=== PATIENT | male | born 1940 | race Caucasian/White ===

== ENCOUNTER 2017-10-30 11:37 | Inpatient (IN) | payer MEDICARE, BC ==
[2017-10-30] MEDS: Sodium Chloride 0.9% 1,000 ML IV SCH ×2 (12:18→20:23)
[2017-10-30] MEDS: Sodium Chloride 0.9% 10 ML Syringe FLUSH PRN (12:18)
--- NOTE | 2017-10-30 13:01 | PCM.HP ---
H&P History of Present Illness - General Date of Service: 10/30/17 Admit Problem/Dx: Admission Diagnosis/Problem Admission Diagnosis/Problem Renal failure Source of Information: Patient, Family, Old Records History Limitations: Reports: No Limitations - History of Present Illness Onset of Symptoms: Reports: Gradual Duration of Symptoms: Reports: Day(s):, Getting Worse (increasing pain last couple days, to acute pain today) Location: Reports: Abdomen Quality: Reports: Same as Previous Episode Severity: Moderate Improves with: Reports: None Worsens with: Reports: None Context: Reports: Other (h/o small intestine carcinoid, 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) Associated Symptoms: Reports: Loss of Appetite, Weakness Abdominal Pain Score (Numeric/FACES): 7 - Related Data Allergies/Adverse Reactions: Allergies Allergy/AdvReac Type Severity Reaction Status Date / Time NSAIDS (Non-Steroidal Allergy UNKNOWN Verified 10/30/17 12:38 Anti-Inflamma Home Medications: Home Meds Levothyroxine 150 mcg PO QAM 09/17/13 [History] Shark Cartilage 1,000 mg PO QAM 09/17/13 [History] Tolterodine Tartrate [Detrol LA] 4 mg PO QAM 09/17/13 [History] amLODIPine [Norvasc] 10 mg PO BID 09/17/13 [History] Aspirin 81 mg PO DAILY 09/14/16 [History] Metoprolol Tartrate 25 mg PO BID 12/14/16 [History] Febuxostat [Uloric] 40 mg PO DAILY 10/30/17 [History] Losartan [Cozaar] 25 mg PO DAILY 10/30/17 [History] Mv-Mn/FA/Vit K/Lycop/Lut/Zeaxa [Ocuvite Eye + Multi Tablet] 1 each PO DAILY [History] Octreotide [SandoSTATIN LAR] 20 mg IM Q30D 10/30/17 [History] Pravastatin Sodium 20 mg PO DAILY 10/30/17 [History] Tamsulosin HCl [Flomax] 0.4 mg PO DAILY 10/30/17 [History] Ticagrelor [Brilinta] 60 mg PO DAILY 10/30/17 [History] Vit C/Thompson & Celery Ex/Grp E [Tart Thompson] 1 each PO DAILY 10/30/17 [History] Past Medical History HEENT History: Reports: Other (See Below) Other HEENT History: Wears glasses Cardiovascular History: Reports: Bypass, CAD, High Cholesterol, Hypertension, Stents Other Cardiovascular History: most recent cardiac stent July 2017 Other Gastrointestinal History: 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, h/o SBO Genitourinary History: Reports: BPH, Prostate Disorder Other Genitourinary History: Prostate Adenocarcinoma with radiation seeds Musculoskeletal History: Reports: Gout, Osteoarthritis Endocrine/Metabolic History: Reports: Hypothyroidism, Obesity/BMI 30+ Oncologic (Cancer) History: Reports: Prostate, Other (See Below) Other Oncologic History: metastatic carcinoid tumor, small bowel - Past Surgical History Cardiovascular Surgical History: Reports: Coronary Artery Bypass, Coronary Artery Stent GI Surgical History: Reports: Colon (s/p partial small bowel resection for carcinoid) Male Surgical History: Reports: Other (See Below) (prostate radiation seeds) Social & Family History - Tobacco Use Smoking Status *Q: Former Smoker Years of Tobacco use: 15 Used Tobacco, but Quit: Yes Month/Year Tobacco Last Used: 1984 - Caffeine Use Caffeine Use: Reports: Coffee Caffeine Use Comment: 5 cups a day - Recreational Drug Use Recreational Drug Use: No H&P Review of Systems - Review of Systems: Review Of Systems: See Below General: Reports: Malaise, Weakness, Fatigue, Decreased Appetite HEENT: Reports: No Symptoms Pulmonary: Reports: Shortness of Breath (however improved since Management Associate Dr. Oliveira decreased dose of Brilinta) Cardiovascular: Reports: Dyspnea on Exertion (again, improved after Brilinta dose decreased) Gastrointestinal: Reports: Abdominal Pain, Decreased Appetite Genitourinary: Reports: No Symptoms Musculoskeletal: Reports: No Symptoms Skin: Reports: No Symptoms Psychiatric: Reports: No Symptoms Neurological: Reports: No Symptoms Hematologic/Lymphatic: Reports: Easy Bruising (secondary to Brilinta) Immunologic: Reports: No Symptoms Exam - Exam Exam: See Below - Vital Signs Vital Signs: Last Vital Signs Temp 98.1 F 10/30/17 12:00 Pulse 88 10/30/17 12:00 Resp 18 10/30/17 12:00 BP 135/72 10/30/17 12:00 Pulse Ox 96 10/30/17 12:00 Weight: 219 lb 9.6 oz - Exam General: Alert, Oriented, Moderate Distress HEENT: EOMI, Hearing Intact, Mucosa Moist & [place], Pupils Reactive, Glasses Neck: Supple, Trachea Midline Lungs: Clear to Auscultation, Normal Respiratory Effort Cardiovascular: Regular Rate, Regular Rhythm GI/Abdominal Exam: Normal Bowel Sounds, No Organomegaly, No Mass, Distended ( very slight distention), Tender (mild tenderness reproduced with palpation) (Male) Exam: Deferred Rectal (Males) Exam: Deferred Extremities: Normal Inspection, No Pedal Edema Skin: Warm, Dry, Intact Neuro Extensive - Mental Status: Alert, Oriented x3, Normal Mood/Affect, Normal Cognition, Memory Intact Psychiatric: Alert, Normal Affect, Normal Mood - Problem List (1) Abdominal pain SNOMED Code(s): 90762196 ICD Code: R10.9 - UNSPECIFIED ABDOMINAL PAIN Status: Acute Priority: High Current Visit: Yes Qualifiers: Abdominal location: lower abdomen, unspecified Qualified Code(s): R10.30 - Lower abdominal pain, unspecified (2) Renal failure (ARF), acute on chronic SNOMED Code(s): 117361012 ICD Code: N17.9 - ACUTE KIDNEY FAILURE, UNSPECIFIED; N18.9 - CHRONIC KIDNEY DISEASE, UNSPECIFIED Status: Acute Priority: High Current Visit: Yes Qualifiers: Qualified Code(s): N17.9 - Acute kidney failure, unspecified; N18.9 - Chronic kidney disease, unspecified (3) HTN (hypertension) SNOMED Code(s): 39412372 ICD Code: I10 - ESSENTIAL (PRIMARY) HYPERTENSION Status: Chronic Priority : Medium Current Visit: Yes Qualifiers: Hypertension type: essential hypertension Qualified Code(s): I10 - Essential (primary) hypertension (4) Hyperlipemia SNOMED Code(s): 89379981 ICD Code: E78.5 - HYPERLIPIDEMIA, UNSPECIFIED Status: Chronic Priority: Low Current Visit: Yes Qualifiers: Hyperlipidemia type: unspecified Qualified Code(s): E78.5 - Hyperlipidemia , unspecified (5) Coronary artery disease SNOMED Code(s): 27459887 ICD Code: I25.10 - ATHSCL HEART DISEASE OF [place] CORONARY ARTERY W/O ANG PCTRS Status: Chronic Priority: Medium Current Visit: Yes Qualifiers: Coronary Disease-Associated Artery/Lesion type: bypass graft [place] vs. transplanted heart: [place] heart Associated angina: without angina Qualified Code(s): I25.810 - Atherosclerosis of coronary artery bypass graft(s) without angina pectoris (6) Hypothyroidism SNOMED Code(s): 13821527 ICD Code: E03.9 - HYPOTHYROIDISM, UNSPECIFIED Status: Chronic Priority: Low Current Visit: Yes Qualifiers: Hypothyroidism type: unspecified Qualified Code(s): E03.9 - Hypothyroidism , unspecified (7) 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 SNOMED Code(s): 534507879, 499274791 ICD Code: D3A.019 - BENIGN CARCINOID TUMOR OF THE SMALL INTESTINE, UNSP PORTION Status: Chronic Priority: High Current Visit: Yes Problem Details: s/p partial small bowel resection Problem List Initiated/Reviewed/Updated: Yes Orders Last 24hrs: Active Orders 24 hr Category Date Time Status Patient Status [ADT] Routine ADT 10/30/17 11:48 Active Bedrest Bathroom Privileges [RC] ASDIRECTED Care 10/30/17 11:48 Active Height and Weight [RC] DAILY Care 10/30/17 11:48 Active Intake and Output [RC] QSHIFT Care 10/30/17 11:50 Active Oxygen Therapy [RC] PRN Care 10/30/17 11:48 Active Peripheral IV Care [RC] . DIRECTED Care 10/30/17 11:51 Active Up With Assistance [RC] ASDIRECTED Care 10/30/17 11:48 Active VTE/DVT Education [RC] PER UNIT ROUTINE Care 10/30/17 11:48 Active Vital Signs [RC] Q4H Care 10/30/17 11:48 Active Nothing per Oral Now Diet [DIET] Diet 10/30/17 Lunch Active Abdomen 2V AP Flat Upright [CR] Routine Exams 10/30/17 10:42 Taken CTA Abd Pelv w wo Cont [CT] Urgent Exams 10/30/17 12:47 Ordered C-REACTIVE PROTEIN [CHEM] AM Lab 10/31/17 05:11 Ordered C-REACTIVE PROTEIN [CHEM] AM Lab 11/01/17 05:11 Ordered C-REACTIVE PROTEIN [CHEM] AM Lab 11/02/17 05:11 Ordered C-REACTIVE PROTEIN [CHEM] AM Lab 11/03/17 05:11 Ordered CBC WITH AUTO DIFF [HEME] AM Lab 10/31/17 05:11 Ordered CBC WITH AUTO DIFF [HEME] AM Lab 11/01/17 05:11 Ordered CBC WITH AUTO DIFF [HEME] AM Lab 11/02/17 05:11 Ordered CBC WITH AUTO DIFF [HEME] AM Lab 11/03/17 05:11 Ordered COMPREHENSIVE METABOLIC PN,CMP [CHEM] AM Lab 10/31/17 05:11 Ordered COMPREHENSIVE METABOLIC PN,CMP [CHEM] AM Lab 11/01/17 05:11 Ordered COMPREHENSIVE METABOLIC PN,CMP [CHEM] AM Lab 11/02/17 05:11 Ordered COMPREHENSIVE METABOLIC PN,CMP [CHEM] AM Lab 11/03/17 05:11 Ordered Aspirin Med 10/31/17 08:00 Ordered 81 mg PO DAILY Levothyroxine Med 10/31/17 08:00 Ordered 150 mcg PO QAM Losartan [Cozaar] Med 10/31/17 08:00 Ordered 25 mg PO DAILY Metoprolol Tartrate [Lopressor] Med 10/30/17 18:00 Ordered 25 mg PO BID Sodium Chloride 0.9% [Normal Saline] 1,000 ml Med 10/30/17 12:00 Active IV ASDIRECTED Sodium Chloride 0.9% [Saline Flush] Med 10/30/17 11:48 Active 10 ml FLUSH ASDIRECTED PRN Tamsulosin [Flomax] Med 10/31/17 08:00 Ordered 0.4 mg PO DAILY Ticagrelor [Brilinta] Med 10/31/17 08:00 Ordered 60 mg PO DAILY amLODIPine [Norvasc] Med 10/30/17 18:00 Ordered 10 mg PO BID Antiembolic Hose [OM.PC] Per Unit Routine Oth 10/30/17 11:50 Ordered Peripheral IV Insertion Adult [OM.PC] Routine Oth 10/30/17 11:48 Ordered Resuscitation Status Routine Resus Stat 10/30/17 11:48 Ordered Medication Orders Amlodipine Besylate (Norvasc) 10 mg PO BID [facility] Aspirin (Aspirin) 81 mg PO DAILY [facility] Sodium Chloride (Normal Saline) 1,000 mls @ 125 mls/hr IV ASDIRECTED [facility]AKIA Last Admin: 10/30/17 12:18 Dose: 125 mls/hr Levothyroxine Sodium (Levothyroxine) 150 mcg PO QAM [facility] Metoprolol Tartrate (Lopressor) 25 mg PO BID [facility] Non-Formulary Medication (Losartan [Cozaar]) 25 mg PO DAILY [facility] Non-Formulary Medication (Ticagrelor [Brilinta]) 60 mg PO DAILY [facility] Sodium Chloride (Saline Flush) 10 ml FLUSH ASDIRECTED PRN PRN Reason: Keep Vein Open Last Admin: 10/30/17 12:18 Dose: 10 ml Tamsulosin HCl (Flomax) 0.4 mg PO DAILY [facility] Assessment/Plan Comment:: 10-30-17 Randal Mulligan PA-C Admitting to IP status this 77 yr-old male with acute renal failure, acute abdominal pain. Concern for metastatic carcinoid tumor as causative agent of acute pain. H/O small bowel carcinoid tumor with mets, s/p partial small bowel resection. Needing CT scan of the abdomen and pelvis, did discuss with patient and the need for this vs. the risk of using dye. They understand the implications of risk to renal function. Starting IV NS at 125 ml/h. Patient is npo, and CT scan is ordered. Holding Detrol, Pravastatin, Uloric, fish oil and shark cartilage. Dr. Cook consulted at the time of admit. Did discuss transfer to [place] vs. admit at [facility], and patient would prefer to be admitted locally.
[2017-10-30] MEDS ORDERED: Metoprolol Tartrate 25 MG Tab PO SCH (18:00)
[2017-10-30] MEDS ORDERED: amLODIPine 5 MG Tab PO SCH (18:00)
[2017-10-30] MEDS: Metoprolol Tartrate 25 MG Tab PO SCH (19:26)
[2017-10-30] MEDS ORDERED: BRILINTA 60 MG PO SCH (20:00)
[2017-10-31] MEDS: Sodium Chloride 0.9% 1,000 ML IV SCH (04:18)
[2017-10-31] MEDS ORDERED: Temazepam 15 MG Cap PO PRN (04:24)
[2017-10-31] MEDS ORDERED: Levothyroxine 150 MCG Tab PO SCH (07:30)
[2017-10-31] MEDS ORDERED: Tamsulosin 0.4 MG Cap.ER PO SCH (08:00)
[2017-10-31] MEDS ORDERED: Aspirin 81 MG Tab.Chew PO SCH (08:00)
[2017-10-31] MEDS ORDERED: Losartan 50 MG Tab PO SCH (08:00)
[2017-10-31] MEDS ORDERED: amLODIPine 5 MG Tab PO SCH (08:00)
[2017-10-31] MEDS: Metoprolol Tartrate 25 MG Tab PO SCH (08:02)
[2017-10-31 11:33] VITALS: BP 120/75
[2017-10-31] MEDS ORDERED: Furosemide 40 MG/4 ML VIAL IVPUSH ONE (14:00)
--- NOTE | 2017-10-31 14:22 | PCM.PN ---
- General Info Date of Service: 10/31/17 Admission Dx/Problem (Free Text): Admission Diagnosis/Problem Admission Diagnosis/Problem Renal failure Functional Status: Reports: Pain Controlled, Urinating - Review of Systems General: Reports: Weakness HEENT: Reports: No Symptoms Pulmonary: Reports: Shortness of Breath Cardiovascular: Reports: Dyspnea on Exertion Gastrointestinal: Reports: Abdominal Pain Genitourinary: Reports: Urgency Musculoskeletal: Reports: No Symptoms Skin: Reports: No Symptoms Neurological: Reports: No Symptoms Psychiatric: Reports: No Symptoms - Patient Data Vitals - Most Recent: Last Vital Signs Temp 97.5 F 10/31/17 11:31 Pulse 75 10/31/17 11:31 Resp 20 10/31/17 11:31 BP 120/75 10/31/17 11:31 Pulse Ox 95 10/31/17 11:31 Weight - Most Recent: 219 lb 1.597 oz I&O - Last 24 Hours: Intake & Output 10/30/17 10/31/17 10/31/17 22:59 06:59 14:59 Intake Total 1190 2391 1040 Output Total 700 400 Balance 490 1991 1040 Lab Results Last 24 Hours: Laboratory Results - last 24 hr 10/31/17 10/31/17 10/31/17 Range/Units 07:20 07:20 07:20 WBC 10.8 H (4.0-10.2) K/uL RBC 4.20 L (4.33-5.41) M/uL Hgb 13.1 (13.1-16.8) g/dL Hct 39.3 (39.0-49.0) % MCV 93.6 (84.0-98.0) fL MCH 31.2 (28.2-33.3) pg MCHC 33.3 (31.7-36.0) g/dL RDW 14.8 H (11.2-14.1) % Plt Count 158 (150-350) K/uL Neut % (Auto) 76.8 (45.0-80.0) % Lymph % (Auto) 10.4 (10.0-50.0) % [place] % (Auto) 12.5 (2.0-14.0) % Eos % (Auto) 0.1 (0.0-5.0) % Baso % (Auto) 0.2 (0.0-2.0) % Neut # (Auto) 8.31 H (1.40-7.00) K/uL Lymph # (Auto) 1.13 (0.50-3.50) K/uL [place] # (Auto) 1.35 H (0.00-1.00) K/uL Eos # (Auto) 0.01 (0.00-0.50) K/uL Baso # (Auto) 0.02 (0.00-0.20) K/uL PT 11.2 (9.8-11.7) SEC INR 1.0 APTT 31.7 H (22.1-29.8) SEC Sodium 138 (136-145) mmol/L Potassium 3.8 (3.5-5.1) mmol/L Chloride 106 (98-107) mmol/L Carbon Dioxide 21.4 (21.0-32.0) mmol/L BUN 19 H (7-18) mg/dL Creatinine 1.70 H (0.51-1.17) mg/dL Est Cr Clr Drug Dosing 33.40 mL/min Estimated GFR (MDRD) 39 mL/min Glucose 140 H (74-106) mg/dL Uric Acid 4.7 (2.6-7.2) mg/dL Calcium 8.5 (8.5-10.1) mg/dL Total Bilirubin 1.4 H (0.2-1.0) mg/dL AST 27 (15-37) U/L ALT 22 (12-78) U/L Alkaline Phosphatase 77 (46-116) IU/L C-Reactive Protein 22.5 H (<=0.9) mg/dL Total Protein 7.2 (6.4-8.2) g/dL Albumin 3.1 L (3.4-5.0) g/dL Med Orders - Current: Current Medications Amlodipine Besylate (Norvasc) 10 mg PO DAILY [facility] Last Admin: 10/31/17 08:02 Dose: 10 mg Furosemide (Lasix) 40 mg IVPUSH NOW ONE Stop: 10/31/17 14:01 Levothyroxine Sodium (Levothyroxine) 150 mcg PO ACBREAKFAST [facility] Last Admin: 10/31/17 08:02 Dose: 150 mcg Metoprolol Tartrate (Lopressor) 25 mg PO BID@08,20 [facility] Last Admin: 10/31/17 08:02 Dose: 25 mg Sodium Chloride (Saline Flush) 10 ml FLUSH ASDIRECTED PRN PRN Reason: Keep Vein Open Last Admin: 10/30/17 12:18 Dose: 10 ml Tamsulosin HCl (Flomax) 0.4 mg PO DAILY [facility] Last Admin: 10/31/17 08:01 Dose: 0.4 mg Temazepam (Restoril) 15 mg PO BEDTIME PRN PRN Reason: Insomnia Discontinued Medications Amlodipine Besylate (Norvasc) 10 mg PO BID [facility] Aspirin (Aspirin) 81 mg PO DAILY [facility] Sodium Chloride (Normal Saline) 1,000 mls @ 125 mls/hr IV ASDIRECTED [facility] Last Admin: 10/31/17 04:18 Dose: 125 mls/hr Losartan Potassium (Cozaar) 25 mg PO DAILY [facility] Metoprolol Tartrate (Lopressor) 25 mg PO BID [facility] Ticagrelor [Brilinta (] 60 Mg Tablet) 60 mg PO DAILY [facility] Brilinta 60 Mg Own (Med) 0 mg PO BID@08,20 [facility] Last Admin: 10/30/17 19:43 Dose: 60 mg - Exam General: Alert, Cooperative, No Acute Distress HEENT: Pupils Equal, Pupils Reactive, Mucous Membr. Moist/[place] Neck: Trachea Midline, No JVD Lungs: Decreased Breath Sounds, Wheezing (end expiratory), Other (slightly labored breathing with talking) Cardiovascular: Regular Rate, Regular Rhythm GI/Abdominal Exam: Normal Bowel Sounds, Soft, Tender (periumbilical) (Male) Exam: Deferred Back Exam: Normal Inspection Extremities: Normal Inspection, Non-Tender Skin: Warm, Dry, Intact, Ecchymosis Neurological: No New Focal Deficit Psy/Mental Status: Alert, Normal Affect, Normal Mood - Problem List & Annotations (1) Stented coronary artery Status: Acute Priority: High Current Visit: Yes (2) Abdominal pain SNOMED Code(s): 94513777 Code(s): R10.9 - UNSPECIFIED ABDOMINAL PAIN Status: Acute Priority: High Current Visit: Yes Qualifiers: Abdominal location: lower abdomen, unspecified Qualified Code(s): R10.30 - Lower abdominal pain, unspecified (3) Renal failure (ARF), acute on chronic SNOMED Code(s): 019764107 Code(s): N17.9 - ACUTE KIDNEY FAILURE, UNSPECIFIED; N18.9 - CHRONIC KIDNEY DISEASE, UNSPECIFIED Status: Acute Priority: High Current Visit: Yes Qualifiers: Qualified Code(s): N17.9 - Acute kidney failure, unspecified; N18.9 - Chronic kidney disease, unspecified (4) 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 SNOMED Code(s): 652079115, 716606775 Code(s): D3A.019 - BENIGN CARCINOID TUMOR OF THE SMALL INTESTINE, UNSP PORTION Status: Chronic Priority: High Current Visit: Yes Annotation/ Comment:: s/p partial small bowel resection (5) Coronary artery disease SNOMED Code(s): 03631991 Code(s): I25.10 - ATHSCL HEART DISEASE OF [place] CORONARY ARTERY W/O ANG PCTRS Status: Chronic Priority: Medium Current Visit: Yes Qualifiers: Coronary Disease-Associated Artery/Lesion type: bypass graft [place] vs. transplanted heart: [place] heart Associated angina: without angina Qualified Code(s): I25.810 - Atherosclerosis of coronary artery bypass graft(s) without angina pectoris (6) HTN (hypertension) SNOMED Code(s): 40405341 Code(s): I10 - ESSENTIAL (PRIMARY) HYPERTENSION Status: Chronic Priority : Medium Current Visit: Yes Qualifiers: Hypertension type: essential hypertension Qualified Code(s): I10 - Essential (primary) hypertension (7) Hyperlipemia SNOMED Code(s): 48955036 Code(s): E78.5 - HYPERLIPIDEMIA, UNSPECIFIED Status: Chronic Priority: Low Current Visit: Yes Qualifiers: Hyperlipidemia type: unspecified Qualified Code(s): E78.5 - Hyperlipidemia , unspecified (8) Hypothyroidism SNOMED Code(s): 26465319 Code(s): E03.9 - HYPOTHYROIDISM, UNSPECIFIED Status: Chronic Priority: Low Current Visit: Yes Qualifiers: Hypothyroidism type: unspecified Qualified Code(s): E03.9 - Hypothyroidism , unspecified - Problem List Review Problem List Initiated/Reviewed/Updated: Yes - My Orders Last 24 Hours: My Active Orders 10/31/17 04:24 Temazepam [Restoril] 15 mg PO BEDTIME PRN 10/31/17 07:20 CHROMOGRANIN A [REF] Routine 10/31/17 13:43 Bladder Scan [RC] ONETIME 10/31/17 14:00 Furosemide [Lasix] 40 mg IVPUSH NOW ONE - Plan Plan:: 10-30-17 Randal Mulligan PA-C Admitting to status this 77 yr-old male with acute renal failure, acute abdominal pain. Concern for metastatic carcinoid tumor as causative agent of acute pain. H/O small bowel carcinoid tumor with mets, s/p partial small bowel resection. Needing CT scan of the abdomen and pelvis, did discuss with patient and the need for this vs. the risk of using dye. They understand the implications of risk to renal function. Starting IV NS at 125 ml/h. Patient is npo, and CT scan is ordered. Holding Detrol, Pravastatin, Uloric, fish oil and shark cartilage. Dr. Cook consulted at the time of admit. Did discuss transfer to [place] vs. admit at [facility], and patient would prefer to be admitted locally. 10/31/17 Joey Greenberg MD Feeling better with less pain. Still short of breath. Kidney function has improved. Post void bladder scan = 17ml. CT shows carcinoid mass in mesentery maybe larger or other possibility could be there has been bleeding into the mass which happened in 2010 and caused exact same pain. Discussed treatment options. Possible transfer to [facility]. Called [place] [facility]-- [place] ~1:55. She will have hospitalist call me back. At 2:[address] Mccord returned call. He recommends we schedule follow up as outpatient. I then talked to [facility] oncology [phone]. They will call Dyana back with clinic appointment. Discussed with Dyana.
[2017-10-31] MEDS: Sodium Chloride 0.9% 10 ML Syringe FLUSH PRN (14:34)
--- NOTE | 2017-10-31 15:26 | PCM.DCSUM1 ---
Discharge Summary - Discharge Data Discharge Date: 10/31/17 Discharge Disposition: Home, Self-Care 01 Condition: Good - Discharge Diagnosis/Problem(s) (1) Stented coronary artery Status: Acute Priority: High Current Visit: Yes (2) Abdominal pain SNOMED Code(s): 00783718 ICD Code: R10.9 - UNSPECIFIED ABDOMINAL PAIN Status: Acute Priority: High Current Visit: Yes Qualifiers: Abdominal location: lower abdomen, unspecified Qualified Code(s): R10.30 - Lower abdominal pain, unspecified (3) Renal failure (ARF), acute on chronic SNOMED Code(s): 536127559 ICD Code: N17.9 - ACUTE KIDNEY FAILURE, UNSPECIFIED; N18.9 - CHRONIC KIDNEY DISEASE, UNSPECIFIED Status: Acute Priority: High Current Visit: Yes Qualifiers: Qualified Code(s): N17.9 - Acute kidney failure, unspecified; N18.9 - Chronic kidney disease, unspecified (4) 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 transplanted heart: [place] heart Associated angina: without angina Qualified Code(s): I25.810 - Atherosclerosis of coronary artery bypass graft(s) without angina pectoris (6) HTN (hypertension) SNOMED Code(s): 03796976 ICD Code: I10 - ESSENTIAL (PRIMARY) HYPERTENSION Status: Chronic Priority : Medium Current Visit: Yes Qualifiers: Hypertension type: essential hypertension Qualified Code(s): I10 - Essential (primary) hypertension (7) Hyperlipemia SNOMED Code(s): 51806719 ICD Code: E78.5 - HYPERLIPIDEMIA, UNSPECIFIED Status: Chronic Priority: Low Current Visit: Yes Qualifiers: Hyperlipidemia type: unspecified Qualified Code(s): E78.5 - Hyperlipidemia , unspecified (8) Hypothyroidism SNOMED Code(s): 27152167 ICD Code: E03.9 - HYPOTHYROIDISM, UNSPECIFIED Status: Chronic Priority: Low Current Visit: Yes Qualifiers: Hypothyroidism type: unspecified Qualified Code(s): E03.9 - Hypothyroidism , unspecified - Patient Instructions Diet: Heart Healthy Diet Activity: As Tolerated, No Strenuous Activities Driving: May Drive Today Showering/Bathing: May Shower Notify Provider of: Increased Pain, Nausea and/or Vomiting Other/Special Instructions: [facility] will call you with an appointment today or tomorrow, otherwise call them for an appointment. Return to hospital in [place] or call the [facility] if pain returns or you are not feeling well. - Discharge Plan Home Medications: Home Meds Levothyroxine 150 mcg PO QAM 09/17/13 [History] Shark Cartilage 1,000 mg PO QAM 09/17/13 [History] Tolterodine Tartrate [Detrol LA] 4 mg PO QAM 09/17/13 [History] amLODIPine [Norvasc] 10 mg PO DAILY 09/17/13 [History] Aspirin 81 mg PO DAILY 09/14/16 [History] Metoprolol Tartrate 25 mg PO BID@,20 12/14/16 [History] Febuxostat [Uloric] 40 mg PO DAILY 10/30/17 [History] Losartan [Cozaar] 25 mg PO DAILY 10/30/17 [History] Mv-Mn/FA/Vit K/Lycop/Lut/Zeaxa [Ocuvite Eye + Multi Tablet] 1 each PO DAILY [History] Octreotide [SandoSTATIN LAR] 20 mg IM Q30D 10/30/17 [History] Pravastatin Sodium 20 mg PO BEDTIME 10/30/17 [History] Tamsulosin HCl [Flomax] 0.4 mg PO DAILY 10/30/17 [History] Ticagrelor [Brilinta] 60 mg PO BID@,20 10/30/17 [History] Vit C/Thompson & Celery Ex/Grp E [Tart Thompson] 1 each PO DAILY 10/30/17 [History] Patient Handouts: Acute Kidney Injury, Pediatric, Abdominal Pain, Adult, Easy- to-Read - Discharge Summary/Plan Comment DC Time >30 min.: Yes Discharge Summary/Plan Comment: 77 year old gentleman admitted with severe abdomenal pain and acute renal failure. CT scan confirms carcinoid mass (known history) mid abdomen. Lab testing pending. His pain improved, kidney function improved, still dyspnea but stable and wanting to go home to follow up with [place] [facility], nephrology, and possible pulmonary for further work up and follow up. - Patient Data Vitals - Most Recent: Last Vital Signs Temp 97.5 F 10/31/17 11:31 Pulse 75 10/31/17 11:31 Resp 20 10/31/17 11:31 BP 120/75 10/31/17 11:31 Pulse Ox 95 10/31/17 11:31 Weight - Most Recent: 219 lb 1.597 oz I&O - Last 24 hours: Intake & Output 10/31/17 10/31/17 10/31/17 06:59 14:59 22:59 Intake Total 2391 1040 Output Total 400 200 Balance 1991 840 Lab Results - Last 24 hrs: Laboratory Results - last 24 hr 10/31/17 10/31/17 10/31/17 Range/Units 07:20 07:20 07:20 WBC 10.8 H (4.0-10.2) K/uL RBC 4.20 L (4.33-5.41) M/uL Hgb 13.1 (13.1-16.8) g/dL Hct 39.3 (39.0-49.0) % MCV 93.6 (84.0-98.0) fL MCH 31.2 (28.2-33.3) pg MCHC 33.3 (31.7-36.0) g/dL RDW 14.8 H (11.2-14.1) % Plt Count 158 (150-350) K/uL Neut % (Auto) 76.8 (45.0-80.0) % Lymph % (Auto) 10.4 (10.0-50.0) % Stone % (Auto) 12.5 (2.0-14.0) % Eos % (Auto) 0.1 (0.0-5.0) % Baso % (Auto) 0.2 (0.0-2.0) % Neut # (Auto) 8.31 H (1.40-7.00) K/uL Lymph # (Auto) 1.13 (0.50-3.50) K/uL Stone # (Auto) 1.35 H (0.00-1.00) K/uL Eos # (Auto) 0.01 (0.00-0.50) K/uL Baso # (Auto) 0.02 (0.00-0.20) K/uL PT 11.2 (9.8-11.7) SEC INR 1.0 APTT 31.7 H (22.1-29.8) SEC Sodium 138 (136-145) mmol/L Potassium 3.8 (3.5-5.1) mmol/L Chloride 106 (98-107) mmol/L Carbon Dioxide 21.4 (21.0-32.0) mmol/L BUN 19 H (7-18) mg/dL Creatinine 1.70 H (0.51-1.17) mg/dL Est Cr Clr Drug Dosing 33.40 mL/min Estimated GFR (MDRD) 39 mL/min Glucose 140 H (74-106) mg/dL Uric Acid 4.7 (2.6-7.2) mg/dL Calcium 8.5 (8.5-10.1) mg/dL Total Bilirubin 1.4 H (0.2-1.0) mg/dL AST 27 (15-37) U/L ALT 22 (12-78) U/L Alkaline Phosphatase 77 (46-116) IU/L C-Reactive Protein 22.5 H (<=0.9) mg/dL Total Protein 7.2 (6.4-8.2) g/dL Albumin 3.1 L (3.4-5.0) g/dL Med Orders - Current: Current Medications Amlodipine Besylate (Norvasc) 10 mg PO DAILY [facility] Last Admin: 10/31/17 08:02 Dose: 10 mg Levothyroxine Sodium (Levothyroxine) 150 mcg PO ACBREAKFAST [facility] Last Admin: 10/31/17 08:02 Dose: 150 mcg Metoprolol Tartrate (Lopressor) 25 mg PO BID@08,20 [facility] Last Admin: 10/31/17 08:02 Dose: 25 mg Sodium Chloride (Saline Flush) 10 ml FLUSH ASDIRECTED PRN PRN Reason: Keep Vein Open Last Admin: 10/31/17 14:34 Dose: 10 ml Tamsulosin HCl (Flomax) 0.4 mg PO DAILY [facility] Last Admin: 10/31/17 08:01 Dose: 0.4 mg Temazepam (Restoril) 15 mg PO BEDTIME PRN PRN Reason: Insomnia Discontinued Medications Amlodipine Besylate (Norvasc) 10 mg PO BID [facility] Aspirin (Aspirin) 81 mg PO DAILY [facility] Furosemide (Lasix) 40 mg IVPUSH NOW ONE Stop: 10/31/17 14:01 Last Admin: 10/31/17 14:33 Dose: 40 mg Sodium Chloride (Normal Saline) 1,000 mls @ 125 mls/hr IV ASDIRECTED [facility] Last Admin: 10/31/17 04:18 Dose: 125 mls/hr Losartan Potassium (Cozaar) 25 mg PO DAILY [facility] Metoprolol Tartrate (Lopressor) 25 mg PO BID [facility] Ticagrelor [Brilinta (] 60 Mg Tablet) 60 mg PO DAILY [facility] Brilinta 60 Mg Own (Med) 0 mg PO BID@08,20 [facility] Last Admin: 10/30/17 19:43 Dose: 60 mg
== END 2017-10-31 16:15 | disposition home or self-care (01) | DRG 375 ==
LOC: LL.MS 11:37
PROVIDERS: ADMIT Physician Assistant; ATTEND Family Medicine
DX: C7B.04 Secondary carcinoid tumors of peritoneum (principal); N17.9 Acute kidney failure, unspecified; I12.9 Hypertensive chronic kidney disease with stage 1 through stage 4 chronic kidney disease, or unspecified chronic kidney disease; E66.9 Obesity, unspecified; Z68.34 Body mass index [BMI] 34.0-34.9, adult; N18.9 Chronic kidney disease, unspecified; E78.5 Hyperlipidemia, unspecified; E03.9 Hypothyroidism, unspecified; I25.10 Atherosclerotic heart disease of native coronary artery without angina pectoris; N40.0 Benign prostatic hyperplasia without lower urinary tract symptoms; Z88.8 Allergy status to other drugs, medicaments and biological substances; Z79.899 Other long term (current) drug therapy; Z79.82 Long term (current) use of aspirin; Z95.1 Presence of aortocoronary bypass graft; Z95.5 Presence of coronary angioplasty implant and graft; Z87.891 Personal history of nicotine dependence; Z90.49 Acquired absence of other specified parts of digestive tract; Z85.060 Personal history of malignant carcinoid tumor of small intestine
CPT/HCPCS: 36415; 74019; 74176; 80053; 84550; 85025; 85610; 85730; 86140; 86316; A9270-GY; J1940; J7030; J7050

== ENCOUNTER 2018-10-15 11:48 | Inpatient (IN) | payer MEDICARE, BC ==
[2018-10-15] MEDS ORDERED: Ondansetron 4 MG Tab.DIS PO PRN (13:00)
[2018-10-15] MEDS: Sodium Chloride 0.9% 1,000 ML IV SCH ×2 (13:08→22:20)
[2018-10-15] MEDS: metroNIDAZOLE/Normal Saline 500 MG in Premix Bag 1 BAG IV SCH ×2 (13:12→20:11)
--- NOTE | 2018-10-15 13:14 | PCM.HP ---
H&P History of Present Illness - General Date of Service: 10/15/18 Admit Problem/Dx: Admission Diagnosis/Problem Admission Diagnosis/Problem Abdominal pain Source of Information: Patient, Family History Limitations: Reports: No Limitations - History of Present Illness Onset of Symptoms: Reports: Gradual Duration of Symptoms: Reports: Day(s):, Getting Worse Location: Reports: Abdomen, Generalized Quality: Reports: Pressure (mid abdomen), Sharp (pain in mid abdomen) Severity: Moderate Improves with: Reports: Medication (some relief from nausea with Zofran) Worsens with: Reports: Eating, Movement Associated Symptoms: Reports: Loss of Appetite, Malaise, Nausea/Vomiting, Weakness - Related Data Allergies/Adverse Reactions: Allergies Allergy/AdvReac Type Severity Reaction Status Date / Time NSAIDS (Non-Steroidal Allergy UNKNOWN Verified 09/15/18 16:17 Anti-Inflamma Home Medications: Home Meds Levothyroxine 150 mcg PO QAM 09/17/13 [History] Tolterodine Tartrate [Detrol LA] 4 mg PO QAM 09/17/13 [History] amLODIPine [Norvasc] 10 mg PO DAILY 09/17/13 [History] Metoprolol Tartrate 12.5 mg PO BID@08,20 12/14/16 [History] Febuxostat [Uloric] 40 mg PO DAILY 10/30/17 [History] Losartan [Cozaar] 25 mg PO DAILY 10/30/17 [History] Octreotide [SandoSTATIN LAR] 20 mg IM Q30D 10/30/17 [History] Pravastatin Sodium 20 mg PO BEDTIME 10/30/17 [History] Tamsulosin HCl [Flomax] 0.4 mg PO DAILY 10/30/17 [History] Clopidogrel Bisulfate [Clopidogrel] 75 mg PO DAILY 04/17/18 [History] Cholecalciferol (Vitamin D3) [Vitamin D3] 5,000 unit PO DAILY 10/15/18 [History] Vit A/Vit C/Vit E/Zinc/Copper [Preservision] 1 each PO DAILY 10/15/18 [History] Past Medical History HEENT History: Reports: Other (See Below) Other HEENT History: Wears glasses Cardiovascular History: Reports: Bypass, CAD, High Cholesterol, Hypertension, Pacemaker, Stents Other Cardiovascular History: most recent cardiac stent July 2017. 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, 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 Oncologic (Cancer) History: Reports: Prostate, Other (See Below) Other Oncologic History: metastatic carcinoid tumor, small bowel - Past Surgical History Cardiovascular Surgical History: Reports: Coronary Artery Bypass, Coronary Artery Stent GI Surgical History: Reports: Colon Male Surgical History: Reports: Other (See Below) Social & Family History - Tobacco Core Measures Tobacco Use/Smoking Within Last 30 Days: No - Caffeine Use Caffeine Use: Reports: Coffee Caffeine Use Comment: 5 cups a day - Alcohol Use Alcohol Use History: Yes Alcohol Use in Last Twelve Months: Yes Alcohol Use Frequency: Socially - Recreational Drug Use Recreational Drug Use: No - Living Situation & Occupation Living situation: Reports: Occupation: Retired H&P Review of Systems - Review of Systems: Review Of Systems: ROS reveals no pertinent complaints other than HPI. Exam - Exam Exam: See Below - Exam General: Alert, Oriented, Moderate Distress HEENT: EOMI, Hearing Intact, Other (oral MM somewhat dry) Neck: Supple, Trachea Midline, 2 Lungs: Clear to Auscultation, Normal Respiratory Effort Cardiovascular: Regular Rate, Regular Rhythm, Other (pacemaker) GI/Abdominal Exam: Normal Bowel Sounds, Distended (mildly), Other (pain not really reproducible with palpation, pt localizes the pain as extending bilaterally across the periumbilical area) (Male) Exam: Deferred Rectal (Males) Exam: Deferred Back Exam: Normal Inspection Extremities: No Pedal Edema Skin: Warm, Dry, Intact Neuro Extensive - Mental Status: Alert, Oriented x3, Normal Mood/Affect, Normal Cognition, Memory Intact Psychiatric: Alert, Normal Affect, Normal Mood - Problem List (1) Nausea & vomiting SNOMED Code(s): 25293285 ICD Code: R11.2 - NAUSEA WITH VOMITING, UNSPECIFIED Status: Acute Priority: High Current Visit: Yes Qualifiers: Vomiting Intractability: unspecified (2) Dehydration SNOMED Code(s): 83299761 ICD Code: E86.0 - DEHYDRATION Status: Acute Priority: High Current Visit: Yes Problem List Initiated/Reviewed/Updated: Yes Orders Last 24hrs: Active Orders 24 hr Category Date Time Status Patient Status [ADT] Routine ADT 10/15/18 12:26 Active Antiembolic Devices [RC] PER UNIT ROUTINE Care 10/15/18 12:33 Active Bedrest Bathroom Privileges [RC] ASDIRECTED Care 10/15/18 12:26 Active Height and Weight [RC] DAILY Care 10/15/18 12:26 Active Intake and Output [RC] QSHIFT Care 10/15/18 12:28 Active May Shower [RC] ASDIRECTED Care 10/15/18 12:26 Active Oxygen Therapy [RC] PRN Care 10/15/18 12:26 Active Peripheral IV Care [RC] . DIRECTED Care 10/15/18 12:33 Active VTE/DVT Education [RC] PER UNIT ROUTINE Care 10/15/18 12:26 Active Vital Signs [RC] Q4H Care 10/15/18 12:26 Active Nothing per Oral Now Diet [DIET] Diet 10/15/18 Dinner Active Abdomen 2V AP Flat Upright [CR] Routine Exams 10/15/18 11:57 Taken Chest 2V [CR] Routine Exams 10/15/18 11:50 Taken C-REACTIVE PROTEIN [CHEM] AM Lab 10/16/18 05:11 Ordered C-REACTIVE PROTEIN [CHEM] AM Lab 10/17/18 05:11 Ordered C-REACTIVE PROTEIN [CHEM] AM Lab 10/18/18 05:11 Ordered C-REACTIVE PROTEIN [CHEM] AM Lab 10/19/18 05:11 Ordered CBC WITH AUTO DIFF [HEME] AM Lab 10/16/18 05:11 Ordered CBC WITH AUTO DIFF [HEME] AM Lab 10/17/18 05:11 Ordered CBC WITH AUTO DIFF [HEME] AM Lab 10/18/18 05:11 Ordered CBC WITH AUTO DIFF [HEME] AM Lab 10/19/18 05:11 Ordered COMPREHENSIVE METABOLIC PN,CMP [CHEM] AM Lab 10/16/18 05:11 Ordered COMPREHENSIVE METABOLIC PN,CMP [CHEM] AM Lab 10/17/18 05:11 Ordered COMPREHENSIVE METABOLIC PN,CMP [CHEM] AM Lab 10/18/18 05:11 Ordered COMPREHENSIVE METABOLIC PN,CMP [CHEM] AM Lab 10/19/18 05:11 Ordered CULTURE BLOOD [BC] Stat Lab 10/15/18 12:33 Ordered CULTURE BLOOD [BC] Stat Lab 10/15/18 12:45 Received PSA DIAGNOSTIC [CHEM] Routine Lab 10/15/18 12:49 Ordered URINALYSIS W/MICROSCOPIC [UA W/MICROSCOPIC] [URIN] Lab 10/15/18 12:47 Ordered Routine Ciprofloxacin in D5W [Cipro in D5W 400 MG/200 ML] 400 Med 10/15/18 14:00 Active mg Premix Bag 1 bag IV Q12H Clopidogrel [Plavix] Med 10/16/18 08:00 Ordered 75 mg PO DAILY Levothyroxine Med 10/16/18 08:00 Ordered 150 mcg PO QAM Losartan [Cozaar] Med 10/16/18 08:00 Ordered 25 mg PO DAILY Metoprolol Tartrate [Lopressor] Med 10/15/18 20:00 Ordered 12.5 mg PO BID@08,20 Sodium Chloride 0.9% [Normal Saline] 1,000 ml Med 10/15/18 12:45 Active IV ASDIRECTED Sodium Chloride 0.9% [Saline Flush] Med 10/15/18 12:26 Active 10 ml FLUSH ASDIRECTED PRN Tamsulosin [Flomax] Med 10/16/18 08:00 Ordered 0.4 mg PO DAILY Tolterodine Tartrate [Detrol LA] Med 10/16/18 08:00 Ordered 4 mg PO QAM amLODIPine [Norvasc] Med 10/16/18 08:00 Ordered 10 mg PO DAILY metroNIDAZOLE/Normal Saline [Flagyl 500 MG in NS 100 ML Med 10/15/18 13:00 Active ] 500 mg Premix Bag 1 bag IV Q8H Antiembolic Hose [OM.PC] Per Unit Routine Oth 10/15/18 12:28 Ordered Blood Culture x2 Reflex Set [OM.PC] Stat Oth 10/15/18 12:26 Ordered Peripheral IV Insertion Adult [OM.PC] Routine Oth 10/15/18 12:26 Ordered Resuscitation Status Routine Resus Stat 10/15/18 12:26 Ordered Medication Orders Amlodipine Besylate (Norvasc) 10 mg PO DAILY [facility] Clopidogrel Bisulfate (Plavix) 75 mg PO DAILY [facility] Sodium Chloride (Normal Saline) 1,000 mls @ 150 mls/hr IV ASDIRECTED [facility] Metronidazole 500 mg/ Premix 100 mls @ 100 mls/hr IV Q8H [facility] Ciprofloxacin/Dextrose 400 mg/ (Premix) 200 mls @ 200 mls/hr IV Q12H [facility] Levothyroxine Sodium (Levothyroxine) 150 mcg PO QAM [facility] Metoprolol Tartrate (Lopressor) 12.5 mg PO BID@08,20 [facility] Non-Formulary Medication (Losartan [Cozaar]) 25 mg PO DAILY [facility] Non-Formulary Medication (Tolterodine Tartrate [Detrol La]) 4 mg PO QAM [facility] Sodium Chloride (Saline Flush) 10 ml FLUSH ASDIRECTED PRN PRN Reason: Keep Vein Open Tamsulosin HCl (Flomax) 0.4 mg PO DAILY [facility] Assessment/Plan Comment:: 10-15-18 Randal Mulligan PA-C This 78 yr-old gentleman is admitted to status under the medical management of Dr. Cook for increasingly acute abdominal pain past almost two weeks, now with nausea/vomiting and dehydration. White count markedly elevated on clinic work-up, with a left shift and acutely elevated CRP. T99.[address] Cook consulted at the time of admit, who is familiar with this patient and his medical history. Pauline John, PharmD consulted re dosing of Cipro d/ t CKD. Starting IV hydration with NS at 150 ml/h, also IV Metronidazole and Cipro. He had previously been scheduled for colonoscopy tomorrow but had cancelled yesterday d/t the pain, N/V. He is made npo on admit.
[2018-10-15] MEDS: Ciprofloxacin in D5W 400 MG in Premix Bag 1 BAG IV SCH ×2 (14:31)
[2018-10-15] MEDS: Morphine 2 MG/ML Syringe IVPUSH PRN ×2 (14:48→19:00)
[2018-10-15] MEDS: Sodium Chloride 0.9% 10 ML Syringe FLUSH PRN ×2 (14:49→19:00)
[2018-10-15] MEDS: Acetaminophen 325 MG Tab PO PRN (17:24)
[2018-10-15] MEDS: Metoprolol Tartrate 25 MG Tab PO SCH (20:11)
[2018-10-15] MEDS: HYDROmorphone 0.5 MG/0.5 ML Syringe IVPUSH PRN (22:56)
[2018-10-16] MEDS: Ciprofloxacin in D5W 400 MG in Premix Bag 1 BAG IV SCH ×4 (01:04→15:02)
[2018-10-16] MEDS: Sodium Chloride 0.9% 10 ML Syringe FLUSH PRN ×3 (01:05→23:29)
[2018-10-16] MEDS: HYDROmorphone 0.5 MG/0.5 ML Syringe IVPUSH PRN ×3 (01:05→16:28)
[2018-10-16] MEDS: Ondansetron 4 MG/2 ML SDV IVPUSH PRN (05:15)
[2018-10-16] MEDS: metroNIDAZOLE/Normal Saline 500 MG in Premix Bag 1 BAG IV SCH ×3 (05:15→20:50)
[2018-10-16] MEDS: Sodium Chloride 0.9% 1,000 ML IV SCH (07:15)
[2018-10-16] MEDS ORDERED: Tamsulosin 0.4 MG Cap.ER PO SCH (08:00)
[2018-10-16] MEDS ORDERED: Clopidogrel 75 MG Tab PO SCH (08:00)
[2018-10-16] MEDS ORDERED: amLODIPine 5 MG Tab PO SCH (08:00)
[2018-10-16] MEDS ORDERED: Trospium 20 MG Tab PO SCH (08:00)
[2018-10-16] MEDS ORDERED: Levothyroxine 150 MCG Tab PO SCH (08:00)
[2018-10-16] MEDS ORDERED: Iopamidol 612 MG/ML 100 ML Bottle IVPUSH ONE (11:00)
[2018-10-16] MEDS: Metoprolol Tartrate 25 MG Tab PO SCH ×2 (11:40→20:50)
[2018-10-16] MEDS: Losartan 50 MG Tab PO SCH (11:41)
--- NOTE | 2018-10-16 22:41 | PCM.PN ---
- General Info Date of Service: 10/16/18 Admission Dx/Problem (Free Text): Admission Diagnosis/Problem Admission Diagnosis/Problem Abdominal pain Functional Status: Reports: Pain Controlled (on dilaudid) - Review of Systems General: Reports: Malaise, Appetite (decreased) HEENT: Reports: No Symptoms Pulmonary: Reports: No Symptoms Cardiovascular: Reports: No Symptoms Gastrointestinal: Reports: Abdominal Pain, Decreased Appetite, Nausea Genitourinary: Reports: No Symptoms Musculoskeletal: Reports: Back Pain Skin: Reports: No Symptoms Neurological: Reports: No Symptoms Psychiatric: Reports: No Symptoms - Patient Data Vitals - Most Recent: Last Vital Signs Temp 98.7 F 10/16/18 20:00 Pulse 82 10/16/18 20:50 Resp 19 10/16/18 20:00 BP 125/68 10/16/18 20:50 Pulse Ox 89 L 10/16/18 20:00 Weight - Most Recent: 210 lb 4.8 oz I&O - Last 24 Hours: Intake & Output 10/16/18 10/16/18 10/16/18 06:59 14:59 22:59 Intake Total 2383 350 1000 Output Total 550 600 Balance 2383 -200 400 Lab Results Last 24 Hours: Laboratory Results - last 24 hr 10/15/18 10/16/18 10/16/18 Range/Units 22:10 06:55 06:55 WBC 13.3 H (4.0-10.2) K/uL RBC 4.35 (4.33-5.41) M/uL Hgb 12.8 L (13.1-16.8) g/dL Hct 39.8 (39.0-49.0) % MCV 91.5 (84.0-98.0) fL MCH 29.4 (28.2-33.3) pg MCHC 32.2 (31.7-36.0) g/dL RDW 15.6 H (11.2-14.1) % Plt Count 167 D (150-350) K/uL Neut % (Auto) 83.1 H (45.0-80.0) % Lymph % (Auto) 8.2 L (10.0-50.0) % Porter % (Auto) 8.3 (2.0-14.0) % Eos % (Auto) 0.2 (0.0-5.0) % Baso % (Auto) 0.2 (0.0-2.0) % Neut # (Auto) 11.07 H (1.40-7.00) K/uL Lymph # (Auto) 1.09 (0.50-3.50) K/uL Porter # (Auto) 1.11 H (0.00-1.00) K/uL Eos # (Auto) 0.02 (0.00-0.50) K/uL Baso # (Auto) 0.03 (0.00-0.20) K/uL Sodium 137 (136-145) mmol/L Potassium 4.2 (3.5-5.1) mmol/L Chloride 105 (98-107) mmol/L Carbon Dioxide 21.8 (21.0-32.0) mmol/L BUN 25 H (7-18) mg/dL Creatinine 1.78 H (0.51-1.17) mg/dL Est Cr Clr Drug Dosing 31.38 mL/min Estimated GFR (MDRD) 37 mL/min Glucose 133 H (74-106) mg/dL Lactic Acid (0.4-2.0) mmol/L Calcium 8.9 (8.5-10.1) mg/dL Total Bilirubin 1.9 H (0.2-1.0) mg/dL AST 34 (15-37) U/L ALT 35 (12-78) U/L Alkaline Phosphatase 126 H (46-116) IU/L C-Reactive Protein 37.1 H (<=0.9) mg/dL Total Protein 7.1 (6.4-8.2) g/dL Albumin 2.7 L (3.4-5.0) g/dL Specimen Type Urincc Urine Color Dark yellow Urine Appearance Clear Urine pH 5.5 (5.0-9.0) Ur Specific [place] 1.020 (1.005-1.030) Urine Protein 100 H (NEGATIVE) mg/dL Urine Glucose (UA) Negative (NEGATIVE) mg/dL Urine Ketones Trace H (NEGATIVE) mg/dL Urine Occult Blood Negative (NEGATIVE) Urine Nitrite Negative (NEGATIVE) Urine Bilirubin Small H (NEGATIVE) Urine Urobilinogen 0.2 (0.2-1.0) E.U./dL Ur Leukocyte Esterase Negative (NEGATIVE) Urine RBC 0-5 /HPF Urine WBC 0-5 /HPF Ur Epithelial Cells Few /LPF Amorphous Sediment Few (0/HPF) /HPF Urine Bacteria Few (NONE TO FEW) /HPF Granular Casts Rare H (NEGATIVE) /LPF 10/16/18 Range/Units 06:55 WBC (4.0-10.2) K/uL RBC (4.33-5.41) M/uL Hgb (13.1-16.8) g/dL Hct (39.0-49.0) % MCV (84.0-98.0) fL MCH (28.2-33.3) pg MCHC (31.7-36.0) g/dL RDW (11.2-14.1) % Plt Count (150-350) K/uL Neut % (Auto) (45.0-80.0) % Lymph % (Auto) (10.0-50.0) % [place] % (Auto) (2.0-14.0) % Eos % (Auto) (0.0-5.0) % Baso % (Auto) (0.0-2.0) % Neut # (Auto) (1.40-7.00) K/uL Lymph # (Auto) (0.50-3.50) K/uL [place] # (Auto) (0.00-1.00) K/uL Eos # (Auto) (0.00-0.50) K/uL Baso # (Auto) (0.00-0.20) K/uL Sodium (136-145) mmol/L Potassium (3.5-5.1) mmol/L Chloride (98-107) mmol/L Carbon Dioxide (21.0-32.0) mmol/L BUN (7-18) mg/dL Creatinine (0.51-1.17) mg/dL Est Cr Clr Drug Dosing mL/min Estimated GFR (MDRD) mL/min Glucose (74-106) mg/dL Lactic Acid 1.0 (0.4-2.0) mmol/L Calcium (8.5-10.1) mg/dL Total Bilirubin (0.2-1.0) mg/dL AST (15-37) U/L ALT (12-78) U/L Alkaline Phosphatase (46-116) IU/L C-Reactive Protein (<=0.9) mg/dL Total Protein (6.4-8.2) g/dL Albumin (3.4-5.0) g/dL Specimen Type Urine Color Urine Appearance Urine pH (5.0-9.0) Ur Specific [place] (1.005-1.030) Urine Protein (NEGATIVE) mg/dL Urine Glucose (UA) (NEGATIVE) mg/dL Urine Ketones (NEGATIVE) mg/dL Urine Occult Blood (NEGATIVE) Urine Nitrite (NEGATIVE) Urine Bilirubin (NEGATIVE) Urine Urobilinogen (0.2-1.0) E.U./dL Ur Leukocyte Esterase (NEGATIVE) Urine RBC /HPF Urine WBC /HPF Ur Epithelial Cells /LPF Amorphous Sediment (0/HPF) /HPF Urine Bacteria (NONE TO FEW) /HPF Granular Casts (NEGATIVE) /LPF Stanton Results Last 24 Hours: Microbiology 10/15/18 13:00 Aerobic Blood Culture - Preliminary Blood - Venous - Lab Draw NO GROWTH AFTER 1 DAY Anaerobic Blood Culture - Preliminary NO GROWTH AFTER 1 DAY 10/15/18 12:45 Aerobic Blood Culture - Preliminary Blood - Venous NO GROWTH AFTER 1 DAY Anaerobic Blood Culture - Preliminary NO GROWTH AFTER 1 DAY Med Orders - Current: Current Medications Acetaminophen (Tylenol) 650 mg PO Q3H PRN PRN Reason: Temperature Last Admin: 10/15/18 17:24 Dose: 650 mg Hydromorphone HCl (Dilaudid) 1 mg IVPUSH Q2H PRN PRN Reason: Pain Last Admin: 10/16/18 16:28 Dose: 1 mg Metronidazole 500 mg/ Premix 100 mls @ 100 mls/hr IV Q8H [facility] Last Admin: 10/16/18 20:50 Dose: Not Given Ciprofloxacin/Dextrose 400 mg/ (Premix) 200 mls @ 200 mls/hr IV Q12H [facility] Last Admin: 10/16/18 15:02 Dose: 200 mls/hr Losartan Potassium (Cozaar) 25 mg PO DAILY [facility] Last Admin: 10/16/18 11:41 Dose: 25 mg Metoprolol Tartrate (Lopressor) 12.5 mg PO BID@08,20 [facility] Last Admin: 10/16/18 20:50 Dose: Not Given Ondansetron HCl (Zofran) 4 mg IVPUSH Q4H PRN PRN Reason: Nausea/Vomiting Last Admin: 10/16/18 05:15 Dose: 4 mg Sodium Chloride (Saline Flush) 10 ml FLUSH ASDIRECTED PRN PRN Reason: Keep Vein Open Last Admin: 10/16/18 05:16 Dose: 10 ml Sodium Chloride (Saline Flush) 10 ml FLUSH Q12HR [facility] Discontinued Medications Amlodipine Besylate (Norvasc) 10 mg PO DAILY [facility] Last Admin: 10/16/18 11:39 Dose: 10 mg Clopidogrel Bisulfate (Plavix) 75 mg PO DAILY [facility] Sodium Chloride (Normal Saline) 1,000 mls @ 150 mls/hr IV ASDIRECTED [facility] Last Admin: 10/16/18 07:15 Dose: 150 mls/hr Iopamidol (Isovue-300 (61%)) 100 ml IVPUSH ONETIME ONE Stop: 10/16/18 11:01 Last Admin: 10/16/18 11:02 Dose: 100 ml Levothyroxine Sodium (Levothyroxine) 150 mcg PO QAM [facility] Morphine Sulfate (Morphine) 2 mg IVPUSH Q4H PRN PRN Reason: Pain Last Admin: 10/15/18 19:00 Dose: 2 mg Ondansetron HCl (Zofran Odt) 4 mg PO Q4H PRN PRN Reason: Nausea/Vomiting Tamsulosin HCl (Flomax) 0.4 mg PO DAILY [facility] Trospium (Sanctura) 1 mg PO BID [facility] - Exam General: Alert, Cooperative, No Acute Distress HEENT: EOMI, Mucous Membr. Moist/[place] Neck: Trachea Midline, No JVD Lungs: Clear to Auscultation, Normal Respiratory Effort Cardiovascular: Regular Rate, Regular Rhythm, Other (pacemaker) GI/Abdominal Exam: Normal Bowel Sounds, Soft, No Distention, Tender (mid abdomen ) (Male) Exam: Deferred Back Exam: Normal Inspection Extremities: Normal Inspection, Non-Tender, No Pedal Edema Skin: Warm, Dry, Intact Neurological: No New Focal Deficit Psy/Mental Status: Alert, Normal Affect, Normal Mood - Problem List & Annotations (1) Metastatic carcinoid tumor SNOMED Code(s): 085440967 Code(s): C7B.00 - SECONDARY CARCINOID TUMORS, UNSPECIFIED SITE Status: Acute Priority: High Current Visit: Yes (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 SNOMED Code(s): 338303755, 782285791 Code(s): D3A.019 - BENIGN CARCINOID TUMOR OF THE SMALL INTESTINE, UNSP PORTION Status: Chronic Priority: High Current Visit: No Annotation/ Comment:: s/p partial small bowel resection (3) Diverticulitis large intestine SNOMED Code(s): 6175918 Code(s): K57.32 - DVTRCLI OF LG INT W/O PERFORATION OR ABSCESS W/O BLEEDING Status: Acute Current Visit: Yes Qualifiers: Diverticulitis bleeding: without bleeding Diverticulitis complication: without perforation or abscess Qualified Code(s): K57.32 - Diverticulitis of large intestine without perforation or abscess without bleeding (4) Renal failure (ARF), acute on chronic SNOMED Code(s): 367024377 Code(s): N17.9 - ACUTE KIDNEY FAILURE, UNSPECIFIED; N18.9 - CHRONIC KIDNEY DISEASE, UNSPECIFIED Status: Acute Priority: High Current Visit: No Qualifiers: Acute renal failure type: with acute tubular necrosis (5) Dehydration SNOMED Code(s): 37090162 Code(s): E86.0 - DEHYDRATION Status: Acute Priority: High Current Visit : Yes (6) Nausea & vomiting SNOMED Code(s): 07466282 Code(s): R11.2 - NAUSEA WITH VOMITING, UNSPECIFIED Status: Acute Priority : High Current Visit: Yes Qualifiers: Vomiting Intractability: unspecified (7) Abdominal pain SNOMED Code(s): 19148880 Code(s): R10.9 - UNSPECIFIED ABDOMINAL PAIN Status: Acute Priority: High Current Visit: No Qualifiers: Abdominal location: lower abdomen, unspecified Qualified Code(s): R10.30 - Lower abdominal pain, unspecified (8) Stented coronary artery Status: Acute Priority: High Current Visit: No (9) Coronary artery disease SNOMED Code(s): 02766198 Code(s): I25.10 - ATHSCL HEART DISEASE OF [place] CORONARY ARTERY W/O ANG PCTRS Status: Chronic Priority: Medium Current Visit: No Qualifiers: Coronary Disease-Associated Artery/Lesion type: bypass graft [place] vs. transplanted heart: [place] heart Associated angina: without angina Qualified Code(s): I25.810 - Atherosclerosis of coronary artery bypass graft(s) without angina pectoris (10) HTN (hypertension) SNOMED Code(s): 17149553 Code(s): I10 - ESSENTIAL (PRIMARY) HYPERTENSION Status: Chronic Priority : Medium Current Visit: No Qualifiers: Hypertension type: essential hypertension Qualified Code(s): I10 - Essential (primary) hypertension (11) Hyperlipemia SNOMED Code(s): 70528193 Code(s): E78.5 - HYPERLIPIDEMIA, UNSPECIFIED Status: Chronic Priority: Low Current Visit: No Qualifiers: Hyperlipidemia type: unspecified Qualified Code(s): E78.5 - Hyperlipidemia , unspecified (12) Hypothyroidism SNOMED Code(s): 81839624 Code(s): E03.9 - HYPOTHYROIDISM, UNSPECIFIED Status: Chronic Priority: Low Current Visit: No Qualifiers: Hypothyroidism type: unspecified Qualified Code(s): E03.9 - Hypothyroidism , unspecified - Problem List Review Problem List Initiated/Reviewed/Updated: Yes - My Orders Last 24 Hours: My Active Orders 10/17/18 08:00 Sodium Chloride 0.9% [Saline Flush] 10 ml FLUSH Q12HR 10/17/18 Breakfast Full Liquid Diet [DIET] - Plan Plan:: 10-15-18 Randal Mulligan PA-C This 78 yr-old gentleman is admitted to [facility] under the medical management of Dr. Cook for increasingly acute abdominal pain past almost two weeks, now with nausea/vomiting and dehydration. White count markedly elevated on clinic work-up, with a left shift and acutely elevated CRP. T99.[address] Cook consulted at the time of admit, who is familiar with this patient and his medical history. Pauline John, PharmD consulted re dosing of Cipro d/ t CKD. Starting IV hydration with NS at 150 ml/h, also IV Metronidazole and Cipro. He had previously been scheduled for colonoscopy tomorrow but had cancelled yesterday d/t the pain, N/V. He is made npo on admit. 10/16/18 Joey Greenberg MD Pain persists but is improved on dilaudid. Did tolerate clear liquids. Labs still abnormal. Abdomen/pelvis CT results discussed with yDana his . Metastatic carcinoid lymph nodes increasing in size and mesenteric mass increased in size. Possible pneumonia but clinically lungs sound clear. Creatinine did improve today with IV fluids. Options discussed with Narinder and Madie. Continue IV antibiotics and IV dilaudid. Will contact his [facility] doctors and [facility] doctors in AM.
[2018-10-16] MEDS: cefTRIAXone 1 GM in Sodium Chloride 0.9% 100 ML IV SCH (23:29)
[2018-10-17] MEDS: Ciprofloxacin in D5W 400 MG in Premix Bag 1 BAG IV SCH ×4 (02:00→13:57)
[2018-10-17] MEDS: HYDROmorphone 0.5 MG/0.5 ML Syringe IVPUSH PRN ×3 (02:00→08:27)
[2018-10-17] MEDS: Ondansetron 4 MG/2 ML SDV IVPUSH PRN (02:00)
[2018-10-17] MEDS: Sodium Chloride 0.9% 10 ML Syringe FLUSH PRN ×5 (02:01→13:57)
[2018-10-17] MEDS: metroNIDAZOLE/Normal Saline 500 MG in Premix Bag 1 BAG IV SCH ×2 (04:25→12:39)
[2018-10-17] MEDS: Losartan 50 MG Tab PO SCH (07:43)
[2018-10-17] MEDS: Metoprolol Tartrate 25 MG Tab PO SCH ×2 (07:44→19:42)
[2018-10-17] MEDS: cefTRIAXone 1 GM in Sodium Chloride 0.9% 100 ML IV SCH ×2 (07:46→19:40)
[2018-10-17] MEDS: Sodium Chloride 0.9% 10 ML Syringe FLUSH SCH ×2 (07:47→19:50)
[2018-10-17] MEDS ORDERED: cefTRIAXone 2 GM Vial IVPUSH SCH (08:00)
[2018-10-17] MEDS: Levothyroxine 150 MCG Tab PO SCH (10:44)
[2018-10-17] MEDS: Acetaminophen 325 MG Tab PO PRN (13:10)
[2018-10-17] MEDS ORDERED: Octreotide Depot 20 MG Kit for Injection IM ONE (17:22)
[2018-10-17] MEDS: Acetaminophen/HYDROcodone 325-5 MG Tab PO PRN (19:45)
[2018-10-17] MEDS ORDERED: Norflurane/HFc 245FA Medium Stream Spray 103.5 ML Can TOP PRN (20:04)
--- NOTE | 2018-10-17 23:06 | PCM.PN ---
- General Info Date of Service: 10/17/18 Admission Dx/Problem (Free Text): Admission Diagnosis/Problem Admission Diagnosis/Problem Abdominal pain Functional Status: Reports: Pain Controlled - Review of Systems General: Reports: Fever (improving), Weakness HEENT: Reports: No Symptoms Pulmonary: Reports: No Symptoms Cardiovascular: Reports: No Symptoms Gastrointestinal: Reports: Abdominal Pain, Diarrhea Genitourinary: Reports: No Symptoms Musculoskeletal: Reports: Back Pain Skin: Reports: No Symptoms Neurological: Reports: Weakness Psychiatric: Reports: No Symptoms - Patient Data Vitals - Most Recent: Last Vital Signs Temp 97.6 F 10/17/18 19:45 Pulse 84 10/17/18 19:45 Resp 17 10/17/18 19:45 BP 129/63 10/17/18 19:45 Pulse Ox 95 10/17/18 19:45 Weight - Most Recent: 213 lb 11.2 oz I&O - Last 24 Hours: Intake & Output 10/17/18 10/17/18 10/17/18 06:59 14:59 22:59 Intake Total 500 860 640 Output Total 700 Balance -200 860 640 Lab Results Last 24 Hours: Laboratory Results - last 24 hr 10/17/18 10/17/18 Range/Units 06:55 06:55 WBC 9.3 (4.0-10.2) K/uL RBC 3.94 L (4.33-5.41) M/uL Hgb 11.7 L (13.1-16.8) g/dL Hct 36.5 L (39.0-49.0) % MCV 92.6 (84.0-98.0) fL MCH 29.7 (28.2-33.3) pg MCHC 32.1 (31.7-36.0) g/dL RDW 15.8 H (11.2-14.1) % Plt Count 177 (150-350) K/uL Neut % (Auto) 78.3 (45.0-80.0) % Lymph % (Auto) 10.6 (10.0-50.0) % Bailey % (Auto) 9.7 (2.0-14.0) % Eos % (Auto) 1.3 (0.0-5.0) % Baso % (Auto) 0.1 (0.0-2.0) % Neut # (Auto) 7.30 H (1.40-7.00) K/uL Lymph # (Auto) 0.99 (0.50-3.50) K/uL Bailey # (Auto) 0.90 (0.00-1.00) K/uL Eos # (Auto) 0.12 (0.00-0.50) K/uL Baso # (Auto) 0.01 (0.00-0.20) K/uL Sodium 138 (136-145) mmol/L Potassium 4.0 (3.5-5.1) mmol/L Chloride 106 (98-107) mmol/L Carbon Dioxide 23.4 (21.0-32.0) mmol/L BUN 19 H (7-18) mg/dL Creatinine 1.91 H (0.51-1.17) mg/dL Est Cr Clr Drug Dosing 29.25 mL/min Estimated GFR (MDRD) 34 mL/min Glucose 117 H (74-106) mg/dL Calcium 8.4 L (8.5-10.1) mg/dL Total Bilirubin 0.8 (0.2-1.0) mg/dL AST 28 (15-37) U/L ALT 27 (12-78) U/L Alkaline Phosphatase 187 H (46-116) IU/L C-Reactive Protein 25.1 H (<=0.9) mg/dL Total Protein 6.4 (6.4-8.2) g/dL Albumin 2.4 L (3.4-5.0) g/dL Stanton Results Last 24 Hours: Microbiology 10/15/18 13:00 Aerobic Blood Culture - Preliminary Blood - Venous - Lab Draw NO GROWTH AFTER 2 DAYS Anaerobic Blood Culture - Preliminary NO GROWTH AFTER 2 DAYS 10/15/18 12:45 Aerobic Blood Culture - Preliminary Blood - Venous NO GROWTH AFTER 2 DAYS Anaerobic Blood Culture - Preliminary NO GROWTH AFTER 2 DAYS Med Orders - Current: Current Medications Acetaminophen (Tylenol) 650 mg PO Q3H PRN PRN Reason: Temperature Last Admin: 10/17/18 13:10 Dose: 650 mg Hydrocodone Bitart/Acetaminophen ([place] 325-5 Mg) 1 tab PO Q3H PRN PRN Reason: Pain Last Admin: 10/17/18 19:45 Dose: 1 tab Hydromorphone HCl (Dilaudid) 1 mg IVPUSH Q2H PRN PRN Reason: Pain Last Admin: 10/17/18 08:27 Dose: 1 mg Ceftriaxone Sodium 1 gm/ (Sodium Chloride) 100 mls @ 200 mls/hr IV Q12HR [facility] Last Admin: 10/17/18 19:40 Dose: 200 mls/hr Levothyroxine Sodium (Levothyroxine) 150 mcg PO ACBREAKFAST [facility] Last Admin: 10/17/18 10:44 Dose: 150 mcg Losartan Potassium (Cozaar) 25 mg PO DAILY [facility] Last Admin: 10/17/18 07:43 Dose: 25 mg Metoprolol Tartrate (Lopressor) 12.5 mg PO BID@08,20 [facility] Last Admin: 10/17/18 19:42 Dose: 12.5 mg Norflurane (Pain Ease Crum) 1 ml TOP ASDIRECTED PRN PRN Reason: IM injection Last Admin: 10/17/18 20:21 Dose: 1 spray Ondansetron HCl (Zofran) 4 mg IVPUSH Q4H PRN PRN Reason: Nausea/Vomiting Last Admin: 10/17/18 02:00 Dose: 4 mg Sodium Chloride (Saline Flush) 10 ml FLUSH ASDIRECTED PRN PRN Reason: Keep Vein Open Last Admin: 10/17/18 13:57 Dose: 10 ml Sodium Chloride (Saline Flush) 10 ml FLUSH Q12HR [facility] Last Admin: 10/17/18 19:50 Dose: 10 ml Discontinued Medications Amlodipine Besylate (Norvasc) 10 mg PO DAILY [facility] Last Admin: 10/16/18 11:39 Dose: 10 mg Clopidogrel Bisulfate (Plavix) 75 mg PO DAILY [facility] Sodium Chloride (Normal Saline) 1,000 mls @ 150 mls/hr IV ASDIRECTED [facility] Last Admin: 10/16/18 07:15 Dose: 150 mls/hr Metronidazole 500 mg/ Premix 100 mls @ 100 mls/hr IV Q8H [facility] Last Admin: 10/17/18 12:39 Dose: 100 mls/hr Ciprofloxacin/Dextrose 400 mg/ (Premix) 200 mls @ 200 mls/hr IV Q12H [facility] Last Admin: 10/17/18 13:57 Dose: 200 mls/hr Iopamidol (Isovue-300 (61%)) 100 ml IVPUSH ONETIME ONE Stop: 10/16/18 11:01 Last Admin: 10/16/18 11:02 Dose: 100 ml Levothyroxine Sodium (Levothyroxine) 150 mcg PO QAM [facility] Morphine Sulfate (Morphine) 2 mg IVPUSH Q4H PRN PRN Reason: Pain Last Admin: 10/15/18 19:00 Dose: 2 mg Octreotide Acetate (Sandostatin Lar) 20 mg IM ONETIME ONE Stop: 10/17/18 17:23 Last Admin: 10/17/18 20:21 Dose: 20 mg Ondansetron HCl (Zofran Odt) 4 mg PO Q4H PRN PRN Reason: Nausea/Vomiting Tamsulosin HCl (Flomax) 0.4 mg PO DAILY [facility] Trospium (Sanctura) 1 mg PO BID [facility] - Exam Quality Assessment: DVT Prophylaxis (contrindicated) General: Alert, Cooperative, No Acute Distress HEENT: EOMI, Mucous Membr. Moist/[place] Neck: Trachea Midline, No JVD Lungs: Clear to Auscultation, Normal Respiratory Effort Cardiovascular: Regular Rate, Regular Rhythm GI/Abdominal Exam: Normal Bowel Sounds, Soft, No Distention, Tender ( periumbilical) (Male) Exam: Deferred Back Exam: Normal Inspection Extremities: Normal Inspection, Non-Tender Skin: Warm, Dry, Intact Neurological: No New Focal Deficit Psy/Mental Status: Alert, Normal Affect, Normal Mood, Anxious (regarding diagnosis) - Problem List & Annotations (1) Metastatic carcinoid tumor SNOMED Code(s): 159458585 Code(s): C7B.00 - SECONDARY CARCINOID TUMORS, UNSPECIFIED SITE Status: Acute Priority: High Current Visit: Yes (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 SNOMED Code(s): 946986486, 116727540 Code(s): D3A.019 - BENIGN CARCINOID TUMOR OF THE SMALL INTESTINE, UNSP PORTION Status: Chronic Priority: High Current Visit: No Annotation/ Comment:: s/p partial small bowel resection (3) Diverticulitis large intestine SNOMED Code(s): 3699852 Code(s): K57.32 - DVTRCLI OF LG INT W/O PERFORATION OR ABSCESS W/O BLEEDING Status: Acute Current Visit: Yes Qualifiers: Diverticulitis bleeding: without bleeding Diverticulitis complication: without perforation or abscess Qualified Code(s): K57.32 - Diverticulitis of large intestine without perforation or abscess without bleeding (4) Renal failure (ARF), acute on chronic SNOMED Code(s): 208049461 Code(s): N17.9 - ACUTE KIDNEY FAILURE, UNSPECIFIED; N18.9 - CHRONIC KIDNEY DISEASE, UNSPECIFIED Status: Acute Priority: High Current Visit: No Qualifiers: Acute renal failure type: with acute tubular necrosis (5) Dehydration SNOMED Code(s): 34850198 Code(s): E86.0 - DEHYDRATION Status: Acute Priority: High Current Visit : Yes (6) Nausea & vomiting SNOMED Code(s): 03605164 Code(s): R11.2 - NAUSEA WITH VOMITING, UNSPECIFIED Status: Acute Priority : High Current Visit: Yes Qualifiers: Vomiting Intractability: unspecified (7) Abdominal pain SNOMED Code(s): 83124784 Code(s): R10.9 - UNSPECIFIED ABDOMINAL PAIN Status: Acute Priority: High Current Visit: No Qualifiers: Abdominal location: lower abdomen, unspecified Qualified Code(s): R10.30 - Lower abdominal pain, unspecified (8) Stented coronary artery Status: Acute Priority: High Current Visit: No (9) Coronary artery disease SNOMED Code(s): 69224153 Code(s): I25.10 - ATHSCL HEART DISEASE OF [place] CORONARY ARTERY W/O ANG PCTRS Status: Chronic Priority: Medium Current Visit: No Qualifiers: Coronary Disease-Associated Artery/Lesion type: bypass graft [place] vs. transplanted heart: [place] heart Associated angina: without angina Qualified Code(s): I25.810 - Atherosclerosis of coronary artery bypass graft(s) without angina pectoris (10) HTN (hypertension) SNOMED Code(s): 95831079 Code(s): I10 - ESSENTIAL (PRIMARY) HYPERTENSION Status: Chronic Priority : Medium Current Visit: No Qualifiers: Hypertension type: essential hypertension Qualified Code(s): I10 - Essential (primary) hypertension (11) Hyperlipemia SNOMED Code(s): 70667598 Code(s): E78.5 - HYPERLIPIDEMIA, UNSPECIFIED Status: Chronic Priority: Low Current Visit: No Qualifiers: Hyperlipidemia type: unspecified Qualified Code(s): E78.5 - Hyperlipidemia , unspecified (12) Hypothyroidism SNOMED Code(s): 40060142 Code(s): E03.9 - HYPOTHYROIDISM, UNSPECIFIED Status: Chronic Priority: Low Current Visit: No Qualifiers: Hypothyroidism type: unspecified Qualified Code(s): E03.9 - Hypothyroidism , unspecified - Problem List Review Problem List Initiated/Reviewed/Updated: Yes - My Orders Last 24 Hours: My Active Orders 10/16/18 23:15 cefTRIAXone [Rocephin] 1 gm Sodium Chloride 0.9% [Normal Saline] 100 ml IV Q12HR 10/17/18 08:00 Sodium Chloride 0.9% [Saline Flush] 10 ml FLUSH Q12HR 10/17/18 17:25 Acetaminophen/HYDROcodone [[place] 325-5 MG] 1 tab PO Q3H PRN 10/17/18 20:04 Norflurane/HFc 245FA [Pain Ease Crum] 1 ml TOP ASDIRECTED PRN 10/17/18 Dinner Regular Diet [DIET] 10/20/18 08:00 Abdomen w wo Cont [MR] Routine - Plan Plan:: 10-15-18 Randal Mulligan PA-C This 78 yr-old gentleman is admitted to status under the medical management of Dr. Cook for increasingly acute abdominal pain past almost two weeks, now with nausea/vomiting and dehydration. White count markedly elevated on clinic work-up, with a left shift and acutely elevated CRP. T99.[address] Cook consulted at the time of admit, who is familiar with this patient and his medical history. Pauline John, PharmD consulted re dosing of Cipro d/ t CKD. Starting IV hydration with NS at 150 ml/h, also IV Metronidazole and Cipro. He had previously been scheduled for colonoscopy tomorrow but had cancelled yesterday d/t the pain, N/V. He is made npo on admit. 10/16/18 Joey Greenberg MD Pain persists but is improved on dilaudid. Did tolerate clear liquids. Labs still abnormal. Abdomen/pelvis CT results discussed with Narinder and Madie his . Metastatic carcinoid lymph nodes increasing in size and mesenteric mass increased in size. Possible pneumonia but clinically lungs sound clear. Creatinine did improve today with IV fluids. Options discussed with Dyana. Continue IV antibiotics and IV dilaudid. Will contact his [facility] doctors and [place] doctors in AM. 10/17/18 Joey Greenberg MD He is feeling a little bit better. Tolerating oral intake. Some diarrhea. Pain is improving. I have talked to [facility] oncologist Dr. Gonzalez. Also talked to [facility] Dr. Trujillo. We will keep him hospitalized here in [place] for inpatient treatment and set up appointments with Dr. Gonzalez in [place] ( will call and set up appointment) and we will set up appointment at [facility]. Dr. Gonzalez did recommend for him to get the sandostatin shot and he needs an MRI.
[2018-10-18] MEDS: Acetaminophen/HYDROcodone 325-5 MG Tab PO PRN (02:48)
[2018-10-18 08:27] VITALS: BP 148/87
[2018-10-18] MEDS: Metoprolol Tartrate 25 MG Tab PO SCH (08:34)
[2018-10-18] MEDS: Levothyroxine 150 MCG Tab PO SCH (08:36)
[2018-10-18] MEDS: Losartan 50 MG Tab PO SCH (08:37)
[2018-10-18] MEDS: cefTRIAXone 1 GM in Sodium Chloride 0.9% 100 ML IV SCH (08:37)
[2018-10-18] MEDS: Sodium Chloride 0.9% 10 ML Syringe FLUSH SCH (08:38)
--- NOTE | 2018-10-18 11:12 | PCM.HP ---
H&P History of Present Illness - General Admit Problem/Dx: Admission Diagnosis/Problem Admission Diagnosis/Problem Abdominal pain Bilateral Upper Abdomen Pain Score (Numeric/FACES): 3 - Related Data Allergies/Adverse Reactions: Allergies Allergy/AdvReac Type Severity Reaction Status Date / Time NSAIDS (Non-Steroidal Allergy UNKNOWN Verified 09/15/18 16:17 Anti-Inflamma Home Medications: Home Meds Levothyroxine 150 mcg PO QAM 09/17/13 [History] Tolterodine Tartrate [Detrol LA] 4 mg PO QAM 09/17/13 [History] Metoprolol Tartrate 12.5 mg PO BID@08,20 12/14/16 [History] Febuxostat [Uloric] 40 mg PO DAILY 10/30/17 [History] Losartan [Cozaar] 25 mg PO DAILY 10/30/17 [History] Octreotide [SandoSTATIN LAR] 20 mg IM Q30D 10/30/17 [History] Pravastatin Sodium 20 mg PO BEDTIME 10/30/17 [History] Tamsulosin HCl [Flomax] 0.4 mg PO DAILY 10/30/17 [History] Cholecalciferol (Vitamin D3) [Vitamin D3] 5,000 unit PO DAILY 10/15/18 [History] Vit A/Vit C/Vit E/Zinc/Copper [Preservision] 1 each PO DAILY 10/15/18 [History] Acetaminophen/HYDROcodone [Forman 325-5 MG] 1 tab PO Q3H PRN #20 tablet 10/18/18 [Rx] Cefprozil [Cefzil] 500 mg PO BID #10 tab 10/18/18 [Rx] amLODIPine [Norvasc] 5 mg PO DAILY #90 10/18/18 [Rx] Past Medical History HEENT History: Reports: Other (See Below) Other HEENT History: Wears glasses Cardiovascular History: Reports: Bypass, CAD, High Cholesterol, Hypertension, Pacemaker, Stents Other Cardiovascular History: most recent cardiac stent July 2017. 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, 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 Oncologic (Cancer) History: Reports: Prostate, Other (See Below) Other Oncologic History: metastatic carcinoid tumor, small bowel - Infectious Disease History Infectious Disease History: Reports: Chicken Pox, Shingles - Past Surgical History Cardiovascular Surgical History: Reports: Coronary Artery Bypass, Coronary Artery Stent GI Surgical History: Reports: Colon Male Surgical History: Reports: Other (See Below) Social & Family History - Family History Family Medical History: Noncontributory - Tobacco Use Smoking Status *Q: Former Smoker Years of Tobacco use: 30 Used Tobacco, but Quit: Yes Month/Year Tobacco Last Used: 35 years ago Second Hand Smoke Exposure: No - Caffeine Use Caffeine Use: Reports: Coffee Caffeine Use Comment: 5 cups a day - Alcohol Use Days Per Week of Alcohol Use: 0 - Recreational Drug Use Recreational Drug Use: No - Living Situation & Occupation Living situation: Reports: Occupation: Retired Exam - Vital Signs Vital Signs: Last Vital Signs Temp 97.6 F 10/18/18 08:00 Pulse 87 10/18/18 08:34 Resp 18 10/18/18 08:00 BP 148/87 H 10/18/18 08:37 Pulse Ox 92 L 10/18/18 08:00 Weight: 214 lb 6.4 oz - Patient Data Lab Results Last 24 hrs: Laboratory Results - last 24 hr 10/18/18 10/18/18 Range/Units 07:13 07:13 WBC 8.2 (4.0-10.2) K/uL RBC 3.82 L (4.33-5.41) M/uL Hgb 11.2 L (13.1-16.8) g/dL Hct 35.4 L (39.0-49.0) % MCV 92.7 (84.0-98.0) fL MCH 29.3 (28.2-33.3) pg MCHC 31.6 L (31.7-36.0) g/dL RDW 15.8 H (11.2-14.1) % Plt Count 181 (150-350) K/uL Neut % (Auto) 74.0 (45.0-80.0) % Lymph % (Auto) 12.5 (10.0-50.0) % [place] % (Auto) 11.0 (2.0-14.0) % Eos % (Auto) 2.3 (0.0-5.0) % Baso % (Auto) 0.2 (0.0-2.0) % Neut # (Auto) 6.07 (1.40-7.00) K/uL Lymph # (Auto) 1.03 (0.50-3.50) K/uL [place] # (Auto) 0.90 (0.00-1.00) K/uL Eos # (Auto) 0.19 (0.00-0.50) K/uL Baso # (Auto) 0.02 (0.00-0.20) K/uL Sodium 139 (136-145) mmol/L Potassium 3.9 (3.5-5.1) mmol/L Chloride 107 (98-107) mmol/L Carbon Dioxide 22.4 (21.0-32.0) mmol/L BUN 17 (7-18) mg/dL Creatinine 2.05 H (0.51-1.17) mg/dL Est Cr Clr Drug Dosing 27.25 mL/min Estimated GFR (MDRD) 31 mL/min Glucose 131 H (74-106) mg/dL Calcium 8.3 L (8.5-10.1) mg/dL Total Bilirubin 0.4 (0.2-1.0) mg/dL AST 15 (15-37) U/L ALT 21 (12-78) U/L Alkaline Phosphatase 152 H (46-116) IU/L C-Reactive Protein 21.6 H (<=0.9) mg/dL Total Protein 6.1 L (6.4-8.2) g/dL Albumin 2.3 L (3.4-5.0) g/dL Result Diagrams: 10/18/18 07:13 10/18/18 07:13 Stanton Results Last 24 hrs: Microbiology 10/15/18 13:00 Aerobic Blood Culture - Preliminary Blood - Venous - Lab Draw NO GROWTH AFTER 2 DAYS Anaerobic Blood Culture - Preliminary NO GROWTH AFTER 2 DAYS 10/15/18 12:45 Aerobic Blood Culture - Preliminary Blood - Venous NO GROWTH AFTER 2 DAYS Anaerobic Blood Culture - Preliminary NO GROWTH AFTER 2 DAYS - Problem List (1) Nausea & vomiting SNOMED Code(s): 51564370 ICD Code: R11.2 - NAUSEA WITH VOMITING, UNSPECIFIED Status: Acute Priority: High Current Visit: Yes Qualifiers: Vomiting Intractability: unspecified (2) Dehydration SNOMED Code(s): 55439331 ICD Code: E86.0 - DEHYDRATION Status: Acute Priority: High Current Visit: Yes Orders Last 24hrs: Active Orders 24 hr Category Date Time Status Ready for Discharge [RC] PER UNIT ROUTINE Care 10/18/18 11:04 Ordered Regular Diet [DIET] Diet 10/17/18 Dinner Active Abdomen w wo Cont [MR] Routine Exams 10/20/18 08:00 Ordered C-REACTIVE PROTEIN [CHEM] AM Lab 10/19/18 05:11 Ordered CBC WITH AUTO DIFF [HEME] AM Lab 10/19/18 05:11 Ordered COMPREHENSIVE METABOLIC PN,CMP [CHEM] AM Lab 10/19/18 05:11 Ordered Acetaminophen/HYDROcodone [Forman 325-5 MG] Med 10/17/18 17:25 Active 1 tab PO Q3H PRN Norflurane/HFc 245FA [Pain Ease [place]] Med 10/17/18 20:04 Active 1 ml TOP ASDIRECTED PRN Medication Orders Acetaminophen (Tylenol) 650 mg PO Q3H PRN PRN Reason: Temperature Last Admin: 10/17/18 13:10 Dose: 650 mg Admin: 10/15/18 17:24 Dose: 650 mg Hydrocodone Bitart/Acetaminophen ([place] 325-5 Mg) 1 tab PO Q3H PRN PRN Reason: Pain Last Admin: 10/18/18 02:48 Dose: 1 tab Admin: 10/17/18 19:45 Dose: 1 tab Hydromorphone HCl (Dilaudid) 1 mg IVPUSH Q2H PRN PRN Reason: Pain Last Admin: 10/17/18 08:27 Dose: 1 mg Admin: 10/17/18 04:25 Dose: 1 mg Admin: 10/17/18 02:00 Dose: 1 mg Admin: 10/16/18 16:28 Dose: 1 mg Admin: 10/16/18 05:15 Dose: 1 mg Admin: 10/16/18 01:05 Dose: 1 mg Admin: 10/15/18 22:56 Dose: 1 mg Ceftriaxone Sodium 1 gm/ (Sodium Chloride) 100 mls @ 200 mls/hr IV Q12HR [facility] Last Admin: 10/18/18 08:37 Dose: 200 mls/hr Admin: 10/17/18 19:40 Dose: 200 mls/hr Admin: 10/17/18 07:46 Dose: 200 mls/hr Admin: 10/16/18 23:29 Dose: 200 mls/hr Levothyroxine Sodium (Levothyroxine) 150 mcg PO ACBREAKFAST [facility] Last Admin: 10/18/18 08:36 Dose: 150 mcg Admin: 10/17/18 10:44 Dose: 150 mcg Losartan Potassium (Cozaar) 25 mg PO DAILY [facility] Last Admin: 10/18/18 08:37 Dose: 25 mg Admin: 10/17/18 07:43 Dose: 25 mg Admin: 10/16/18 11:41 Dose: 25 mg Metoprolol Tartrate (Lopressor) 12.5 mg PO BID@08,20 [facility] Last Admin: 10/18/18 08:34 Dose: 12.5 mg Admin: 10/17/18 19:42 Dose: 12.5 mg Admin: 10/17/18 07:44 Dose: 12.5 mg Admin: 10/16/18 20:50 Dose: Not Given Admin: 10/16/18 11:40 Dose: 12.5 mg Admin: 10/15/18 20:11 Dose: 12.5 mg Norflurane (Pain Ease [place]) 1 ml TOP ASDIRECTED PRN PRN Reason: IM injection Last Admin: 10/17/18 20:21 Dose: 1 spray Ondansetron HCl (Zofran) 4 mg IVPUSH Q4H PRN PRN Reason: Nausea/Vomiting Last Admin: 10/17/18 02:00 Dose: 4 mg Admin: 10/16/18 05:15 Dose: 4 mg Sodium Chloride (Saline Flush) 10 ml FLUSH ASDIRECTED PRN PRN Reason: Keep Vein Open Last Admin: 10/17/18 13:57 Dose: 10 ml Admin: 10/17/18 12:40 Dose: 10 ml Admin: 10/17/18 08:27 Dose: 10 ml Admin: 10/17/18 04:26 Dose: 10 ml Admin: 10/17/18 02:01 Dose: 10 ml Admin: 10/16/18 23:29 Dose: 10 ml Admin: 10/16/18 05:16 Dose: 10 ml Admin: 10/16/18 01:05 Dose: 10 ml Admin: 10/15/18 19:00 Dose: 10 ml Admin: 10/15/18 14:49 Dose: 10 ml Sodium Chloride (Saline Flush) 10 ml FLUSH Q12HR [facility] Last Admin: 10/18/18 08:38 Dose: 10 ml Admin: 10/17/18 19:50 Dose: 10 ml Admin: 10/17/18 07:47 Dose: 10 ml Assessment/Plan Comment:: 10-15-18 Randal Mulligan PA-C This 78 yr-old gentleman is admitted to [facility] under the medical management of Dr. Cook for increasingly acute abdominal pain past almost two weeks, now with nausea/vomiting and dehydration. White count markedly elevated on clinic work-up, with a left shift and acutely elevated CRP. T99.[address] Cook consulted at the time of admit, who is familiar with this patient and his medical history. Pauline John, PharmD consulted re dosing of Cipro d/ t CKD. Starting IV hydration with NS at 150 ml/h, also IV Metronidazole and Cipro. He had previously been scheduled for colonoscopy tomorrow but had cancelled yesterday d/t the pain, N/V. He is made npo on admit. 10/16/18 Joey Greenberg MD Pain persists but is improved on dilaudid. Did tolerate clear liquids. Labs still abnormal. Abdomen/pelvis CT results discussed with Dyana his . Metastatic carcinoid lymph nodes increasing in size and mesenteric mass increased in size. Possible pneumonia but clinically lungs sound clear. Creatinine did improve today with IV fluids. Options discussed with Dyana. Continue IV antibiotics and IV dilaudid. Will contact his [facility] doctors and [place] doctors in AM. 10/17/18 Joey Greenberg MD He is feeling a little bit better. Tolerating oral intake. Some diarrhea. Pain is improving. I have talked to [facility] oncologist Dr. Gonzalez. Also talked to [facility] Dr. Trujillo. We will keep him hospitalized here in [place] for inpatient treatment and set up appointments with Dr. Gonzalez in [place] ( will call and set up appointment) and we will set up appointment at [facility]. Dr. Gonzalez did recommend for him to get the sandostatin shot and he needs an MRI.
--- NOTE | 2018-10-18 11:15 | PCM.PN ---
- General Info Date of Service: 10/18/18 Admission Dx/Problem (Free Text): Admission Diagnosis/Problem Admission Diagnosis/Problem Abdominal pain Functional Status: Reports: Pain Controlled (to a tolerable level), Tolerating Diet, Urinating - Review of Systems General: Reports: Weakness, Fatigue HEENT: Reports: No Symptoms Pulmonary: Reports: No Symptoms Cardiovascular: Reports: No Symptoms Gastrointestinal: Reports: Abdominal Pain (but much improved from admit, "tolerable now with the pain pill") Genitourinary: Reports: No Symptoms Musculoskeletal: Reports: No Symptoms Skin: Reports: No Symptoms Neurological: Reports: No Symptoms Psychiatric: Reports: No Symptoms - Patient Data Vitals - Most Recent: Last Vital Signs Temp 97.6 F 10/18/18 08:00 Pulse 87 10/18/18 08:34 Resp 18 10/18/18 08:00 BP 148/87 H 10/18/18 08:37 Pulse Ox 92 L 10/18/18 08:00 Weight - Most Recent: 214 lb 6.4 oz I&O - Last 24 Hours: Intake & Output 10/17/18 10/18/18 10/18/18 22:59 06:59 14:59 Intake Total 640 200 220 Balance 640 200 220 Lab Results Last 24 Hours: Laboratory Results - last 24 hr 10/18/18 10/18/18 Range/Units 07:13 07:13 WBC 8.2 (4.0-10.2) K/uL RBC 3.82 L (4.33-5.41) M/uL Hgb 11.2 L (13.1-16.8) g/dL Hct 35.4 L (39.0-49.0) % MCV 92.7 (84.0-98.0) fL MCH 29.3 (28.2-33.3) pg MCHC 31.6 L (31.7-36.0) g/dL RDW 15.8 H (11.2-14.1) % Plt Count 181 (150-350) K/uL Neut % (Auto) 74.0 (45.0-80.0) % Lymph % (Auto) 12.5 (10.0-50.0) % [place] % (Auto) 11.0 (2.0-14.0) % Eos % (Auto) 2.3 (0.0-5.0) % Baso % (Auto) 0.2 (0.0-2.0) % Neut # (Auto) 6.07 (1.40-7.00) K/uL Lymph # (Auto) 1.03 (0.50-3.50) K/uL [place] # (Auto) 0.90 (0.00-1.00) K/uL Eos # (Auto) 0.19 (0.00-0.50) K/uL Baso # (Auto) 0.02 (0.00-0.20) K/uL Sodium 139 (136-145) mmol/L Potassium 3.9 (3.5-5.1) mmol/L Chloride 107 (98-107) mmol/L Carbon Dioxide 22.4 (21.0-32.0) mmol/L BUN 17 (7-18) mg/dL Creatinine 2.05 H (0.51-1.17) mg/dL Est Cr Clr Drug Dosing 27.25 mL/min Estimated GFR (MDRD) 31 mL/min Glucose 131 H (74-106) mg/dL Calcium 8.3 L (8.5-10.1) mg/dL Total Bilirubin 0.4 (0.2-1.0) mg/dL AST 15 (15-37) U/L ALT 21 (12-78) U/L Alkaline Phosphatase 152 H (46-116) IU/L C-Reactive Protein 21.6 H (<=0.9) mg/dL Total Protein 6.1 L (6.4-8.2) g/dL Albumin 2.3 L (3.4-5.0) g/dL Stanton Results Last 24 Hours: Microbiology 10/15/18 13:00 Aerobic Blood Culture - Preliminary Blood - Venous - Lab Draw NO GROWTH AFTER 2 DAYS Anaerobic Blood Culture - Preliminary NO GROWTH AFTER 2 DAYS 10/15/18 12:45 Aerobic Blood Culture - Preliminary Blood - Venous NO GROWTH AFTER 2 DAYS Anaerobic Blood Culture - Preliminary NO GROWTH AFTER 2 DAYS Med Orders - Current: Current Medications Acetaminophen (Tylenol) 650 mg PO Q3H PRN PRN Reason: Temperature Last Admin: 10/17/18 13:10 Dose: 650 mg Hydrocodone Bitart/Acetaminophen ([place] 325-5 Mg) 1 tab PO Q3H PRN PRN Reason: Pain Last Admin: 10/18/18 02:48 Dose: 1 tab Hydromorphone HCl (Dilaudid) 1 mg IVPUSH Q2H PRN PRN Reason: Pain Last Admin: 10/17/18 08:27 Dose: 1 mg Ceftriaxone Sodium 1 gm/ (Sodium Chloride) 100 mls @ 200 mls/hr IV Q12HR [facility] Last Admin: 10/18/18 08:37 Dose: 200 mls/hr Levothyroxine Sodium (Levothyroxine) 150 mcg PO ACBREAKFAST [facility] Last Admin: 10/18/18 08:36 Dose: 150 mcg Losartan Potassium (Cozaar) 25 mg PO DAILY [facility] Last Admin: 10/18/18 08:37 Dose: 25 mg Metoprolol Tartrate (Lopressor) 12.5 mg PO BID@08,20 [facility] Last Admin: 10/18/18 08:34 Dose: 12.5 mg Norflurane (Pain Ease [place]) 1 ml TOP ASDIRECTED PRN PRN Reason: IM injection Last Admin: 10/17/18 20:21 Dose: 1 spray Ondansetron HCl (Zofran) 4 mg IVPUSH Q4H PRN PRN Reason: Nausea/Vomiting Last Admin: 10/17/18 02:00 Dose: 4 mg Sodium Chloride (Saline Flush) 10 ml FLUSH ASDIRECTED PRN PRN Reason: Keep Vein Open Last Admin: 10/17/18 13:57 Dose: 10 ml Sodium Chloride (Saline Flush) 10 ml FLUSH Q12HR [facility] Last Admin: 10/18/18 08:38 Dose: 10 ml Discontinued Medications Amlodipine Besylate (Norvasc) 10 mg PO DAILY [facility] Last Admin: 10/16/18 11:39 Dose: 10 mg Clopidogrel Bisulfate (Plavix) 75 mg PO DAILY [facility] Sodium Chloride (Normal Saline) 1,000 mls @ 150 mls/hr IV ASDIRECTED [facility] Last Admin: 10/16/18 07:15 Dose: 150 mls/hr Metronidazole 500 mg/ Premix 100 mls @ 100 mls/hr IV Q8H [facility] Last Admin: 10/17/18 12:39 Dose: 100 mls/hr Ciprofloxacin/Dextrose 400 mg/ (Premix) 200 mls @ 200 mls/hr IV Q12H [facility] Last Admin: 10/17/18 13:57 Dose: 200 mls/hr Iopamidol (Isovue-300 (61%)) 100 ml IVPUSH ONETIME ONE Stop: 10/16/18 11:01 Last Admin: 10/16/18 11:02 Dose: 100 ml Levothyroxine Sodium (Levothyroxine) 150 mcg PO QAM [facility] Morphine Sulfate (Morphine) 2 mg IVPUSH Q4H PRN PRN Reason: Pain Last Admin: 10/15/18 19:00 Dose: 2 mg Octreotide Acetate (Sandostatin [place]) 20 mg IM ONETIME ONE Stop: 10/17/18 17:23 Last Admin: 10/17/18 20:21 Dose: 20 mg Ondansetron HCl (Zofran Odt) 4 mg PO Q4H PRN PRN Reason: Nausea/Vomiting Tamsulosin HCl (Flomax) 0.4 mg PO DAILY [facility] Trospium (Sanctura) 1 mg PO BID [facility] - Exam General: Alert, Oriented HEENT: Pupils Reactive, EOMI, Mucous Membr. Moist/[place] Neck: Supple, Trachea Midline, No JVD Lungs: Clear to Auscultation, Normal Respiratory Effort Cardiovascular: Regular Rate GI/Abdominal Exam: Normal Bowel Sounds, Soft, Non-Tender (pain not exacerbated by palpation), No Distention (Male) Exam: Deferred Back Exam: Normal Inspection Extremities: Normal Inspection, No Pedal Edema Skin: Warm, Dry, Intact Neurological: No New Focal Deficit Psy/Mental Status: Alert, Normal Affect, Normal Mood - Problem List & Annotations (1) Nausea & vomiting SNOMED Code(s): 02738235 Code(s): R11.2 - NAUSEA WITH VOMITING, UNSPECIFIED Status: Acute Priority : High Current Visit: Yes Qualifiers: Vomiting Intractability: unspecified (2) Dehydration SNOMED Code(s): 83181235 Code(s): E86.0 - DEHYDRATION Status: Acute Priority: High Current Visit : Yes - Problem List Review Problem List Initiated/Reviewed/Updated: Yes - My Orders Last 24 Hours: My Active Orders 10/18/18 11:04 Ready for Discharge [RC] PER UNIT ROUTINE 10/19/18 05:11 C-REACTIVE PROTEIN [CHEM] AM CBC WITH AUTO DIFF [HEME] AM COMPREHENSIVE METABOLIC PN,CMP [CHEM] AM - Plan Plan:: 10-15-18 Randal Mulligan PA-C This 78 yr-old gentleman is admitted to IP status under the medical management of Dr. Cook for increasingly acute abdominal pain past almost two weeks, now with nausea/vomiting and dehydration. White count markedly elevated on clinic work-up, with a left shift and acutely elevated CRP. T99.[address] Cook consulted at the time of admit, who is familiar with this patient and his medical history. Pauline John, PharmD consulted re dosing of Cipro d/ t CKD. Starting IV hydration with NS at 150 ml/h, also IV Metronidazole and Cipro. He had previously been scheduled for colonoscopy tomorrow but had cancelled yesterday d/t the pain, N/V. He is made npo on admit. 10/16/18 Joey Greenberg MD Pain persists but is improved on dilaudid. Did tolerate clear liquids. Labs still abnormal. Abdomen/pelvis CT results discussed with Dyana his . Metastatic carcinoid lymph nodes increasing in size and mesenteric mass increased in size. Possible pneumonia but clinically lungs sound clear. Creatinine did improve today with IV fluids. Options discussed with Dyana. Continue IV antibiotics and IV dilaudid. Will contact his [facility] doctors and [place] doctors in AM. 10/17/18 Joey Greenberg MD He is feeling a little bit better. Tolerating oral intake. Some diarrhea. Pain is improving. I have talked to [facility] oncologist Dr. Gonzalez. Also talked to [facility] Dr. Trujillo. We will keep him hospitalized here in [place] for inpatient treatment and set up appointments with Dr. Gonzalez in [place] ( will call and set up appointment) and we will set up appointment at [facility]. Dr. Gonzalez did recommend for him to get the sandostatin shot and he needs an MRI. 10-18-18 Randal Mulligan PA-C Patient very much wants to go home. He says the pain is tolerable now with the po pain meds, and he wants to be home. He and his know that the plan is for MRI on 10-20-[address] Iliana Tyler next week at [facility]. Dr. Cook has spoken with Dr. Trujillo down at [place] also. Consulted with Dr. Cook, we will discharge home today with [place] 5/325 for pain, and Cefzil x 5 more days. Amlodipine restarted at just 5mg daily instead of 10mg. Order for the MRI will be written OP. The couple tells me that they were told by the cardiac surgeon in [place] who implanted his pacemaker that it is MRI friendly, they had specifically asked this question. I did get a copy of the [employer] Card ID and will call the physician telephone number given on the card Saturday; I did try today with no answer.
--- NOTE | 2018-10-18 11:34 | PCM.DCSUM1 ---
Discharge Summary - Hospital Course HPI Initial Comments: Patient admitted for acute abdominal pain, fever, nausea, vomiting, diarrhea, dehydration and leukocytosis. Diagnosis: Stroke: No - Discharge Data Discharge Date: 10/18/18 Discharge Disposition: Home, Self-Care 01 Condition: Fair - Discharge Diagnosis/Problem(s) (1) Nausea & vomiting SNOMED Code(s): 17364510 ICD Code: R11.2 - NAUSEA WITH VOMITING, UNSPECIFIED Status: Acute Priority: High Current Visit: Yes Qualifiers: Vomiting Intractability: unspecified (2) Dehydration SNOMED Code(s): 77286691 ICD Code: E86.0 - DEHYDRATION Status: Acute Priority: High Current Visit: Yes - Patient Summary/Data Hospital Course: He clinically improved with IV fluids, antibiotics, anti-emetics and pain medication. Labs improved. 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 - Patient Instructions Diet: Drink 8-10+ Glasses/Day Diet, Other: Advance diet as tolerated Activity: As Tolerated Driving: Do Not Drive Showering/Bathing: May Shower Notify Provider of: Fever, Increased Pain, Nausea and/or Vomiting Other/Special Instructions: Note that Amlodipine dose has been changed to 5mg daily. Call [facility] Saturday morning for time for MRI (tentatively between 10-11am). Nothing to eat or drink after midnight. No aspirin or Plavix until after you see Dr. Tyler and know more about possible surgery. - Discharge Plan *PRESCRIPTION DRUG MONITORING PROGRAM REVIEWED*: Not Applicable *COPY OF PRESCRIPTION DRUG MONITORING REPORT IN PATIENT KIESHA: Not Applicable Prescriptions/Med Rec: Acetaminophen/HYDROcodone [Roe 325-5 MG] 1 tab PO Q3H PRN #20 tablet PRN Reason: Pain Cefprozil [Cefzil] 500 mg PO BID #10 tab Home Medications: Home Meds Levothyroxine 150 mcg PO QAM 09/17/13 [History] Tolterodine Tartrate [Detrol LA] 4 mg PO QAM 09/17/13 [History] Metoprolol Tartrate 12.5 mg PO BID@08,20 12/14/16 [History] Febuxostat [Uloric] 40 mg PO DAILY 10/30/17 [History] Losartan [Cozaar] 25 mg PO DAILY 10/30/17 [History] Octreotide [SandoSTATIN LAR] 20 mg IM Q30D 05/30/18 [History] Pravastatin Sodium 20 mg PO BEDTIME 10/30/17 [History] Tamsulosin HCl [Flomax] 0.4 mg PO DAILY 10/30/17 [History] Cholecalciferol (Vitamin D3) [Vitamin D3] 5,000 unit PO DAILY 10/15/18 [History] Vit A/Vit C/Vit E/Zinc/Copper [Preservision] 1 each PO DAILY 10/15/18 [History] Acetaminophen/HYDROcodone [Roe 325-5 MG] 1 tab PO Q3H PRN #20 tablet 10/18/18 [Rx] Cefprozil [Cefzil] 500 mg PO BID #10 tab 10/18/18 [Rx] amLODIPine [Norvasc] 5 mg PO DAILY #90 10/18/18 [Rx] Patient Handouts: Diverticulitis, [id number], Ceftriaxone injection, Hydromorphone injection, Metronidazole injection, Morphine injection solution, Ciprofloxacin injection - Discharge Summary/Plan Comment DC Time >30 min.: Yes Discharge Summary/Plan Comment: Patient discharged home on po antibiotics and pain meds, to await MRI Saturday, -. 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 I will call the physician phone number given on the Writing Manager ID card Saturday morning to request more official confirmation also. 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 Tyler at [facility] and he will see her this coming week. Dr. Cook also spoke with Dr. Trujillo at [place] where her had the hemicolectomy back in 2010. - Patient Data Vitals - Most Recent: Last Vital Signs Temp 97.6 F 10/18/18 08:00 Pulse 87 10/18/18 08:34 Resp 18 10/18/18 08:00 BP 148/87 H 10/18/18 08:37 Pulse Ox 92 L 10/18/18 08:00 Weight - Most Recent: 214 lb 6.4 oz I&O - Last 24 hours: Intake & Output 10/17/18 10/18/18 10/18/18 22:59 06:59 14:59 Intake Total 640 200 220 Balance 640 200 220 Lab Results - Last 24 hrs: Laboratory Results - last 24 hr 10/18/18 10/18/18 Range/Units 07:13 07:13 WBC 8.2 (4.0-10.2) K/uL RBC 3.82 L (4.33-5.41) M/uL Hgb 11.2 L (13.1-16.8) g/dL Hct 35.4 L (39.0-49.0) % MCV 92.7 (84.0-98.0) fL MCH 29.3 (28.2-33.3) pg MCHC 31.6 L (31.7-36.0) g/dL RDW 15.8 H (11.2-14.1) % Plt Count 181 (150-350) K/uL Neut % (Auto) 74.0 (45.0-80.0) % Lymph % (Auto) 12.5 (10.0-50.0) % Wright % (Auto) 11.0 (2.0-14.0) % Eos % (Auto) 2.3 (0.0-5.0) % Baso % (Auto) 0.2 (0.0-2.0) % Neut # (Auto) 6.07 (1.40-7.00) K/uL Lymph # (Auto) 1.03 (0.50-3.50) K/uL Wright # (Auto) 0.90 (0.00-1.00) K/uL Eos # (Auto) 0.19 (0.00-0.50) K/uL Baso # (Auto) 0.02 (0.00-0.20) K/uL Sodium 139 (136-145) mmol/L Potassium 3.9 (3.5-5.1) mmol/L Chloride 107 (98-107) mmol/L Carbon Dioxide 22.4 (21.0-32.0) mmol/L BUN 17 (7-18) mg/dL Creatinine 2.05 H (0.51-1.17) mg/dL Est Cr Clr Drug Dosing 27.25 mL/min Estimated GFR (MDRD) 31 mL/min Glucose 131 H (74-106) mg/dL Calcium 8.3 L (8.5-10.1) mg/dL Total Bilirubin 0.4 (0.2-1.0) mg/dL AST 15 (15-37) U/L ALT 21 (12-78) U/L Alkaline Phosphatase 152 H (46-116) IU/L C-Reactive Protein 21.6 H (<=0.9) mg/dL Total Protein 6.1 L (6.4-8.2) g/dL Albumin 2.3 L (3.4-5.0) g/dL ELIZABET Results - Last 24 hrs: Microbiology 10/15/18 13:00 Aerobic Blood Culture - Preliminary Blood - Venous - Lab Draw NO GROWTH AFTER 2 DAYS Anaerobic Blood Culture - Preliminary NO GROWTH AFTER 2 DAYS 10/15/18 12:45 Aerobic Blood Culture - Preliminary Blood - Venous NO GROWTH AFTER 2 DAYS Anaerobic Blood Culture - Preliminary NO GROWTH AFTER 2 DAYS Med Orders - Current: Current Medications Acetaminophen (Tylenol) 650 mg PO Q3H PRN PRN Reason: Temperature Last Admin: 10/17/18 13:10 Dose: 650 mg Hydrocodone Bitart/Acetaminophen (Roe 325-5 Mg) 1 tab PO Q3H PRN PRN Reason: Pain Last Admin: 10/18/18 02:48 Dose: 1 tab Hydromorphone HCl (Dilaudid) 1 mg IVPUSH Q2H PRN PRN Reason: Pain Last Admin: 10/17/18 08:27 Dose: 1 mg Ceftriaxone Sodium 1 gm/ (Sodium Chloride) 100 mls @ 200 mls/hr IV Q12HR [facility] Last Admin: 10/18/18 08:37 Dose: 200 mls/hr Levothyroxine Sodium (Levothyroxine) 150 mcg PO ACBREAKFAST [facility] Last Admin: 10/18/18 08:36 Dose: 150 mcg Losartan Potassium (Cozaar) 25 mg PO DAILY [facility] Last Admin: 10/18/18 08:37 Dose: 25 mg Metoprolol Tartrate (Lopressor) 12.5 mg PO BID@08,20 [facility] Last Admin: 10/18/18 08:34 Dose: 12.5 mg Norflurane (Pain Ease [place]) 1 ml TOP ASDIRECTED PRN PRN Reason: IM injection Last Admin: 10/17/18 20:21 Dose: 1 spray Ondansetron HCl (Zofran) 4 mg IVPUSH Q4H PRN PRN Reason: Nausea/Vomiting Last Admin: 10/17/18 02:00 Dose: 4 mg Sodium Chloride (Saline Flush) 10 ml FLUSH ASDIRECTED PRN PRN Reason: Keep Vein Open Last Admin: 10/17/18 13:57 Dose: 10 ml Sodium Chloride (Saline Flush) 10 ml FLUSH Q12HR [facility] Last Admin: 10/18/18 08:38 Dose: 10 ml Discontinued Medications Amlodipine Besylate (Norvasc) 10 mg PO DAILY [facility] Last Admin: 10/16/18 11:39 Dose: 10 mg Clopidogrel Bisulfate (Plavix) 75 mg PO DAILY [facility] Sodium Chloride (Normal Saline) 1,000 mls @ 150 mls/hr IV ASDIRECTED [facility] Last Admin: 10/16/18 07:15 Dose: 150 mls/hr Metronidazole 500 mg/ Premix 100 mls @ 100 mls/hr IV Q8H [facility] Last Admin: 10/17/18 12:39 Dose: 100 mls/hr Ciprofloxacin/Dextrose 400 mg/ (Premix) 200 mls @ 200 mls/hr IV Q12H [facility] Last Admin: 10/17/18 13:57 Dose: 200 mls/hr Iopamidol (Isovue-300 (61%)) 100 ml IVPUSH ONETIME ONE Stop: 10/16/18 11:01 Last Admin: 10/16/18 11:02 Dose: 100 ml Levothyroxine Sodium (Levothyroxine) 150 mcg PO QAM [facility] Morphine Sulfate (Morphine) 2 mg IVPUSH Q4H PRN PRN Reason: Pain Last Admin: 10/15/18 19:00 Dose: 2 mg Octreotide Acetate (Sandostatin Lar) 20 mg IM ONETIME ONE Stop: 10/17/18 17:23 Last Admin: 10/17/18 20:21 Dose: 20 mg Ondansetron HCl (Zofran Odt) 4 mg PO Q4H PRN PRN Reason: Nausea/Vomiting Tamsulosin HCl (Flomax) 0.4 mg PO DAILY [facility] Trospium (Sanctura) 1 mg PO BID [facility]
== END 2018-10-18 12:15 | disposition home or self-care (01) | DRG 683 ==
LOC: LL.DI 11:48 → LL.MS 11:56
PROVIDERS: ADMIT Physician Assistant; ATTEND Family Medicine
DX: N17.0 Acute kidney failure with tubular necrosis (principal); K57.32 Diverticulitis of large intestine without perforation or abscess without bleeding; E86.0 Dehydration; I25.10 Atherosclerotic heart disease of native coronary artery without angina pectoris; E78.00 Pure hypercholesterolemia, unspecified; M19.91 Primary osteoarthritis, unspecified site; C7B.00 Secondary carcinoid tumors, unspecified site; D3A.019 Benign carcinoid tumor of the small intestine, unspecified portion; E03.9 Hypothyroidism, unspecified; E66.9 Obesity, unspecified; N18.9 Chronic kidney disease, unspecified; I12.9 Hypertensive chronic kidney disease with stage 1 through stage 4 chronic kidney disease, or unspecified chronic kidney disease; Z95.0 Presence of cardiac pacemaker; Z85.46 Personal history of malignant neoplasm of prostate; Z85.038 Personal history of other malignant neoplasm of large intestine; Z95.1 Presence of aortocoronary bypass graft; Z88.6 Allergy status to analgesic agent; Z79.899 Other long term (current) drug therapy; Z95.5 Presence of coronary angioplasty implant and graft; Z68.33 Body mass index [BMI] 33.0-33.9, adult
CPT/HCPCS: 36415; 71046; 74019; 74177; 80053; 81001; 83605; 84153; 85025; 86140; 86316; 87040; A4217; A9270-GY; J0696; J0744; J1170; J2270; J2353; J2405; J3490; J7030; J7050; Q9967

== ENCOUNTER → 2019-04-08 | Outpatient (CLI) | payer MEDICARE, BC | LOC: LL.LAB 12:00 | PROVIDERS: ATTEND Physician Assistant | DX: R05 Cough (principal) | CPT/HCPCS: 36415; 85025 ==